=== PATIENT | female | born 1955 ===

== ENCOUNTER 2018-07-03 13:17 | Inpatient (IN) | payer OTHER ==
--- NOTE | 2018-07-03 13:40 | ED PDOC ---
Arrival/HPI - General Chief Complaint: Abdominal Pain Time Seen by Provider: 07/03/18 13:32 Historian: Patient - History of Present Illness Narrative History of Present Illness (Text): 07/03/18 13:42 62 y/o female, pmh including HLD, nkda, c/o upper abdominal pain with nausea/ vomiting started 10 pm last night after eating fried chicken and rice. Pt. stated that she has pain immediately after eating the fried chicken and rice that evening, associated with nausea and vomiting, no night sweat, no dizziness , no coughing, no lower abdominal pain, no rash, no change in vision, no alcohol or drug abuse, no other medical or psychological complaints. Past Medical History - Provider Review Nursing Documentation Reviewed: Yes - Reproductive Menopause: Yes - Pulmonary Hx Respiratory Disorders: No - Psychiatric Hx Substance Use: No - Surgical History Hx Appendectomy: Yes Hx Section: Yes - Anesthesia Hx Anesthesia: Yes Hx Anesthesia Reactions: No Family/Social History - Physician Review Nursing Documentation Reviewed: Yes Family/Social History: Unknown Family HX Smoking Status: Unknown If Ever Smoked Hx Alcohol Use: No Hx Substance Use: No Allergies/Home Meds Allergies/Adverse Reactions: Allergies No Known Allergies Allergy (Verified 07/03/18 13:28) Home Medications: Home Meds Medication Instructions Recorded Confirmed Simvastatin [Simvastatin] 10 mg PO DAILY 07/03/18 07/03/18 Review of Systems - Review of Systems Constitutional: absent: Fatigue, Fevers Eyes: absent: Vision Changes ENT: absent: Hearing Changes Respiratory: absent: SOB, Cough Cardiovascular: absent: Chest Pain Gastrointestinal: Abdominal Pain, Nausea, Vomiting. absent: Diarrhea Musculoskeletal: absent: Arthralgias, Back Pain Skin: absent: Rash, Pruritis Neurological: absent: Headache, Dizziness Hemo/Lymphatic: absent: Adenopathy, Easy Bleeding Psychiatric: absent: Anxiety, Depression, Suicidal Ideation Physical Exam Vital Signs Reviewed: Yes Vital Signs Temp Pulse Resp BP Pulse Ox 07/03/18 19:01 98 F 68 18 112/58 L 99 07/03/18 17:22 98.1 F 64 18 98/62 L 95 07/03/18 15:04 98.1 F 70 18 132/78 98 07/03/18 13:25 98.1 F 78 18 130/80 99 Temperature: Afebrile Blood Pressure: Normal Pulse: Regular Respiratory Rate: Normal Appearance: Positive for: Well-Appearing, Non-Toxic Pain Distress: Moderate Mental Status: Positive for: Alert and Oriented X 3 - Systems Exam Head: Present: Atraumatic, Normocephalic Pupils: Present: PERRL Extroacular Muscles: Present: EOMI Conjunctiva: Present: Normal Mouth: Present: Moist Mucous Membranes Neck: Present: Normal Range of Motion Respiratory/Chest: Present: Clear to Auscultation, Good Air Exchange. No: Respiratory Distress, Accessory Muscle Use Cardiovascular: Present: Regular Rate and Rhythm, Normal S1, S2. No: Murmurs Abdomen: Present: Tenderness (+epigastric tenderenss, +upper abdominal tenderness. ). No: Distention, Peritoneal Signs, Rebound, Guarding, Hernias Back: Present: Normal Inspection Upper Extremity: Present: Normal Inspection. No: Cyanosis, Edema Lower Extremity: Present: Normal Inspection. No: Edema Neurological: Present: GCS=15, CN II-XII Intact, Speech Normal Skin: Present: Warm, Dry, Normal Color. No: Rashes Psychiatric: Present: Alert, Oriented x 3, Normal Insight, Normal Concentration Medical Decision Making ED Course and Treatment: 07/03/18 13:47 Differential: [place] vs. Gastritis vs. Cholecystitis vs. Pancreatitis vs. Colitis vs. Constipation vs. Ureter colic vs. UTI -Labs/ua/cardiac enzyme -ekg -Gallbladder sonogram -CT abdomen and pelvis -IVF/pepcid/zofran -Observe and reassess 07/03/18 14:06 -Pt. request pain meds, morphine 4mg IV 07/03/18 16:22 -EKG: NSR @ 64 BPM, no ST elevation or depression, T wave inversion on lead V2 and V3. -Gallbladder sonogram Marked hepatic steatosis suggested though other etiologies are possible. No intrahepatic biliary dilatation. Examination otherwise remarkable only for partial imaging of the pancreas. -CT abdomen and pelvis show Although the pancreas is not edematous, peripancreatic reaction is suspicious for pancreatitis. Cholelithiasis identified in the gallbladder. No obvious biliary tree dilatation. Clinically correlate further. Marked hepatic steatosis. Tiny lucency right kidney too small to characterize. Potential mesenteric adenitis. -Labs show no acute findings except wbc 11.1, AST 1362/ALT 1441/Lactate Dehydrogenase 4255 (Alcohol/drug screen/PT/PTT/Tylenol/Salicylate level added) -Lipase show 5541 +acute pancreatitis -Cardiac enzyme is negative -Acetaminophen/salicylate levels within normal limit -Alcohol level within normal limit -Pt/Ptt within normal limit. -UA show no UTI -UDS -All labs and radiology result discussed with the patient and share decision is made, pt.'s pmd is from [facility] (Dr. Cheatham) and doesn't come to his hospital, pt. will need admission. Pt. request the admitting physician to be Dr. Villatoro ( she understands Dr. Alejandro is covering Dr. Villatoro and agreed with Dr. Alejandro). 07/03/18 16:49 -Dr. Villatoro paged. 07/03/18 17:07 -Dr. Alejandro called back, covering for Dr. Villatoro, discussed about the labs/ radiology result and agreed on the treatment/admission plan, request admit to her service to [facility] and order routine consult for Dr. Hu. -I discussed with the patient about this plan of care and the patient agreed. 07/03/18 17:35 -Pt. has transient hypotension 98/62, ICU paged and I spoke to Dr. Diaz (ICU oncall), discussed about the labs/radiology results and will come to evaluate the patient as she meets 3 criterias of mariela stoneia. 07/03/18 17:56 -ICU Dr. Diaz came to evaluate the case, will take the patient to the ICU, request blood cultures and IV meropenem, ordered. -I discussed with Dr. Pryor, and she agreed on the treatment and admission plan. 07/03/18 18:56 -Pt. 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 - Lab Interpretations Lab Results: 07/03/18 13:51 07/03/18 14:56 Lab Results 07/03/18 16:00: Alcohol, Quantitative < 10 07/03/18 16:00: PT 11.7, INR 1.03, APTT 27.3 07/03/18 14:56: Salicylates < 1 L, Acetaminophen < 10.0 L 07/03/18 14:56: Sodium 139, Potassium 4.1, Chloride 104, Carbon Dioxide 25, Anion Gap 14, BUN 13, Creatinine 0.7, Est GFR ( Amer) > 60, Est GFR (Non- Af Amer) > 60, Random Glucose 157 H, Calcium 9.4, Magnesium 2.2, Total Bilirubin 2.6 H, AST 1362 H, ALT 1441 H, Alkaline Phosphatase 169 H, Lactate Dehydrogenase 4255 H, Total Creatine Kinase 141, Troponin I < 0.01, Total Protein 8.5 H, Albumin 4.9 H, Globulin 3.7, Albumin/Globulin Ratio 1.3, Lipase 5541 H 07/03/18 13:51: WBC 11.1 H, RBC 5.31, Hgb 15.2, Hct 45.5, MCV 85.7, MCH 28.6, MCHC 33.4, RDW 13.2, Plt Count 260, MPV 10.3, Gran % 84.9 H, Lymph % (Auto) 11.0 L, [place] % (Auto) 3.9, Eos % (Auto) 0.0 L, Baso % (Auto) 0.2, Gran # 9.45 H , Lymph # (Auto) 1.2, [place] # (Auto) 0.4, Eos # (Auto) 0.0, Baso # (Auto) 0.02 07/03/18 13:07: Urine Color Yellow, Urine Appearance Clear, Urine pH 6.0, Ur Specific [place] 1.020, Urine Protein Trace H, Urine Glucose (UA) Negative, Urine Ketones Trace H, Urine Blood Small H, Urine Nitrate Negative, Urine Bilirubin Negative, Urine Urobilinogen 0.2, Ur Leukocyte Esterase Negative, Urine RBC 2 - 5, Urine WBC 1 - 3, Ur Epithelial Cells 3 - 4, Urine Bacteria Mod , Urine Other Utrans I have reviewed the lab results: Yes - RAD Interpretation Radiology Orders: 07/03/18 13:41 ABD & PELVIS IV CONTRAST ONLY [CT] Stat GALLBLADDER & PANCREAS [US] Stat Gall bladder sonogram: Date of service: 07/03/2018 HISTORY: upper abdominal pain x 1 day COMPARISON: None. TECHNIQUE: Sonographic evaluation of the right upper quadrant of the abdomen. FINDINGS: LIVER: Measures 13.5 cm in length. Markedly increased echogenicity of the liver parenchyma. No mass. No intrahepatic bile duct dilatation. GALLBLADDER: Unremarkable. No gallstones. COMMON BILE DUCT: Measures 5.3 mm. No stones. No dilatation. PANCREAS: Overlying bowel gas sisters a tail the pancreas with remainder unremarkable appearing. RIGHT KIDNEY: Measures 9.6 cm in length. Normal echogenicity. No calculus, mass, or hydronephrosis. AORTA: No aneurysmal dilatation. IVC: Unremarkable. OTHER FINDINGS: None . IMPRESSION: Marked hepatic steatosis suggested though other etiologies are possible. No intrahepatic biliary dilatation. Examination otherwise remarkable only for partial imaging of the pancreas. -------- CT abdomen and pelvis: 07/03/2018 PROCEDURE: CT Abdomen and Pelvis with contrast HISTORY: upper abdominal pain x 1 day, nausea/vomiting COMPARISON: None. TECHNIQUE: Following oral and intravenous contrast administration, a CT examination of the abdomen and pelvis performed from the domes of the diaphragms to the symphysis pubis with reformatted datasets provided not only axial but also sagittal and coronal series. Contrast dose: Omnipaque 350, 100 cc Radiation dose: Total exam DLP = 645.79 mGy-cm. This CT exam was performed using one or more of the following dose reduction techniques: Automated exposure control, adjustment of the mA and/or kV according to patient size, and/or use of iterative reconstruction technique. FINDINGS: LOWER THORAX: Unremarkable. LIVER: Markedly diminished attenuation throughout the liver is identified representing hepatic steatosis. No mass or intrahepatic biliary dilatation appreciated. GALLBLADDER AND BILE DUCTS: Gallbladder is contracted with cholelithiasis identified in the lumen. PANCREAS: Pancreas appears grossly nonfocal however peripancreatic reaction is appreciated suspicious for pancreatitis extending into the left para renal space. Trace reactive changes seen superficial to the cells muscles bilaterally , potentially from the same etiology. No pancreatic duct dilatation. No obvious choledocholithiasis or significant dilatation of the common bile duct. SPLEEN: Unremarkable. ADRENALS: Unremarkable. No mass. KIDNEYS AND URETERS: No obstructive uropathy or renal mass appreciable although a tiny lucency is seen at the right kidney too small to characterize. VASCULATURE: Unremarkable. No aortic aneurysm. BOWEL: Unremarkable. No obstruction. No gross mural thickening. APPENDIX: Appendix not identified. No CT evidence of appendicitis. PERITONEUM: Central mesenteric reactive changes are appreciated with a few tiny shotty lymph nodes. Mesenteric adenitis is not completely excluded. No pericecal lymphadenopathy identified. LYMPH NODES: Unremarkable. No enlarged lymph nodes. BLADDER: Unremarkable. REPRODUCTIVE: Unremarkable. BONES: No acute fracture. OTHER FINDINGS: None. IMPRESSION: 1. Although the pancreas is not edematous, peripancreatic reaction is suspicious for pancreatitis. Cholelithiasis identified in the gallbladder. No obvious biliary tree dilatation. Clinically correlate further. 2. Marked hepatic steatosis. 3. Tiny lucency right kidney too small to characterize. 4. Potential mesenteric adenitis. Vending Stand Supervisor: Radiologist - EKG Interpretation EKG Interpretation (Text): 07/03/18 13:49 -EKG: NSR @ 64 BPM, no ST elevation or depression, T wave inversion on lead V2 and V3. Interpreted by ED Physician: Yes Type: 12 lead EKG Comparison: No previous EKG avail. - Medication Orders Current Medication Orders: Sodium Chloride (Sodium Chloride 0.9%) 1,000 mls @ 100 mls/hr IV .Q10H [facility] Last Admin: 07/04/18 21:16 Dose: 100 mls/hr eMAR Start Stop Document 07/04/18 21:16 GLORIA (Rec: 07/04/18 21:17 [facility]ORIA [id number] Intravenous Solution Start Date 07/04/18 Start Time 21:16 End Date 07/05/18 End time 07:00 Total Infusion Time 584 Piperacillin Sod/Tazobactam Sod (Zosyn 3.375 In Ns 100ml) 100 mls @ 200 mls/hr IVPB Q6 SHANICE PRN Reason: Protocol Stop: 07/11/18 12:01 Last Admin: 07/04/18 23:11 Dose: 200 mls/hr eMAR Start Stop Document 07/04/18 23:11 GLORIA (Rec: 07/04/18 23:12 GLORIA [id number] Intravenous Solution Start Date 07/04/18 Start Time 23:12 End Date 07/05/18 End time 00:10 Total Infusion Time 58 Morphine Sulfate (Morphine) 4 mg IVP Q4H PRN PRN Reason: Pain, severe (8-10) Last Admin: 07/04/18 22:15 Dose: 4 mg MAR Pain Assessment Document 07/04/18 22:15 GLORIA (Rec: 07/04/18 22:18 GLORIA [id number] Pain Reassessment Is this a pain reassessment? Yes Sleep Is patient sleeping during reassessment? No Presence of Pain Presence of Pain Yes Pain Scale Used Pain Scale Used Numeric Location Pain Location Body Site Abdomen Description Pain Behavior Irritability Withdrawal from Touch Alleviating Factors Medication IVP Administration Document 07/04/18 22:15 GLORIA (Rec: 07/04/18 22:18 GLORIA [id number] Charges for Administration # of IVP Administrations 1 Discontinued Medications Famotidine (Pepcid) 20 mg IVP STAT STA Stop: 07/03/18 13:42 Last Admin: 07/03/18 14:06 Dose: 20 mg IVP Administration Document 07/03/18 14:06 VIVIANA (Rec: 07/03/18 14:06 VIVIANA [id number]) Charges for Administration # of IVP Administrations 1 Sodium Chloride (Sodium Chloride 0.9%) 1,000 mls @ 250 mls/hr IV .Q4H SHANICE Last Admin: 07/03/18 17:22 Dose: 250 mls/hr Sodium Chloride (Sodium Chloride 0.9%) 1,000 mls @ 100 mls/hr IV .Q10H SHANICE Sodium Chloride (Sodium Chloride 0.9%) 1,000 mls @ 1,000 mls/hr IV .Q1H SHANICE Last Admin: 07/03/18 19:04 Dose: Meropenem (Merrem Iv 1 Gm Premix) 50 mls @ 100 mls/hr IVPB STAT SHANICE PRN Reason: Protocol Last Admin: 07/03/18 18:14 Dose: 100 mls/hr eMAR Start Stop Document 07/03/18 18:14 VIVIANA (Rec: 07/03/18 18:14 VIVIANA [id number]) Intravenous Solution Start Date 07/03/18 Start Time 18:14 End Date 07/03/18 End time 18:44 Total Infusion Time 30 Dextrose/Sodium Chloride (Dextrose 5%/0.9% Ns 1000 Ml) 1,000 mls @ 75 mls/hr IV .[id number] SHANICE Last Admin: 07/03/18 19:08 Dose: 75 mls/hr eMAR Start Stop Document 07/03/18 19:08 LA (Rec: 07/03/18 19:09 LA [id number]) Intravenous Solution Start Date 07/03/18 Start Time 19:08 Calcium Gluconate 1,000 mg/ (Sodium Chloride) 110 mls @ 110 mls/hr IVPB ONCE ONE Stop: 07/04/18 10:22 Last Admin: 07/04/18 10:18 Dose: 110 mls/hr eMAR Start Stop Document 07/04/18 10:18 MMA (Rec: 07/04/18 10:18 MMA [id number] Intravenous Solution Start Date 07/04/18 Start Time 10:18 End Date 07/04/18 Potassium Chloride (Potassium Chloride 10 Meq/100 Ml) 10 meq in 100 mls @ 50 mls/hr IVPB ONCE ONE Stop: 07/04/18 11:22 Last Admin: 07/04/18 10:18 Dose: 50 mls/hr eMAR Start Stop Document 07/04/18 10:18 MMA (Rec: 07/04/18 10:18 MMA [id number] Intravenous Solution Start Date 07/04/18 Start Time 10:18 End Date 07/04/18 End time 12:18 Total Infusion Time 120 Morphine Sulfate (Morphine) 4 mg IVP STAT STA Stop: 07/03/18 14:07 Last Admin: 07/03/18 14:10 Dose: 4 mg MAR Pain Assessment Document 07/03/18 14:10 LA (Rec: 07/03/18 14:10 LA [id number]) Pain Reassessment Is this a pain reassessment? No Sleep Is patient sleeping during reassessment? No Presence of Pain Presence of Pain Yes Pain Scale Used Pain Scale Used Numeric Location Pain Location Body Site Abdomen Description Description Constant Intensity of Pain at present 7 IVP Administration Document 07/03/18 14:10 LA (Rec: 07/03/18 14:10 LA [id number]) Charges for Administration # of IVP Administrations 1 Re-Assess: MARY ELLEN Pain Assessment Document 07/03/18 15:10 LA (Rec: 07/03/18 17:15 LA [id number]) Pain Reassessment Is this a pain reassessment? Yes Sleep Is patient sleeping during reassessment? No Presence of Pain Presence of Pain Yes Pain Scale Used Pain Scale Used Numeric Location Pain Location Body Site Abdomen Description Intensity of Pain at present 3 Ondansetron HCl (Zofran Inj) 4 mg IVP STAT STA Stop: 07/03/18 13:42 Last Admin: 07/03/18 14:06 Dose: 4 mg IVP Administration Document 07/03/18 14:06 VIVIANA (Rec: 07/03/18 14:06 VIVIANA [id number]) Charges for Administration # of IVP Administrations 1 Potassium Chloride (K-Dur 20 Meq Er Tab) 40 meq PO ONCE ONE Stop: 07/04/18 08:21 Last Admin: 07/04/18 08:52 Dose: 40 meq - PA / PUBLIC INFORMATION COORDINATOR / Resident Statement / has reviewed & agrees with the documentation as recorded. Disposition/Present on Arrival - Present on Arrival Any Indicators Present on Arrival: No History of DVT/PE: No History of Uncontrolled Diabetes: No Urinary Catheter: No History of Decub. Ulcer: No History Surgical Site Infection Following: None - Disposition Have Diagnosis and Disposition been Completed?: Yes Diagnosis: Hepatic steatosis, Transaminitis, Pancreatitis, Hypotension Disposition: HOSPITALIZED Disposition Time: 18:01 Patient Plan: Admission, ICU Patient Problems: Current Active Problems Problem Status Onset Hepatic steatosis Acute Hypotension Acute Pancreatitis Acute Transaminitis Acute Condition: STABLE
[2018-07-03] MEDS: Sodium Chloride 0.9% 1,000 ML IV SCH ×4 (14:04→19:04)
[2018-07-03] MEDS ORDERED: Morphine 4 mg/ml ISec IVP STA (14:06)
[2018-07-03 14:16] LABS: BASO # 0.02 K/mm3 (0.0-2.0); BASO % 0.2 % (0.0-3.0); GRAN # 9.45 (1.4-6.5); GRAN % 84.9 % (50.0-68.0); HEMOGLOBIN 15.2 g/dL (12.0-16.0); LYMPH # 1.2 (1.2-3.4); MEAN CELL VOLUME 85.7 fl (80.0-105.0); MEAN CORPUSCULAR HEMOGLOBIN 28.6 pg (25.0-35.0); MEAN CORPUSCULAR HGB CONC 33.4 g/dl (31.0-37.0); MEAN PLATELET VOLUME 10.3 fl (7.0-11.0); MONO # 0.4 (0.1-0.6); MONO % 3.9 % (1.0-6.0); RBC 5.31 10^6/uL (3.5-6.1); RED CELL DISTRIBUTION WIDTH 13.2 % (11.5-14.5); WHITE BLOOD COUNT 11.1 10^3/ul (4.5-11.0)
[2018-07-03] MEDS ORDERED: Iohexol 300 100 ML IJ ONE (14:59)
--- NOTE | 2018-07-03 15:02 | US ---
Date of service: 07/03/2018 HISTORY: upper abdominal pain x 1 day COMPARISON: None. TECHNIQUE: Sonographic evaluation of the right upper quadrant of the abdomen. FINDINGS: LIVER: Measures 13.5 cm in length. Markedly increased echogenicity of the liver parenchyma. No mass. No intrahepatic bile duct dilatation. GALLBLADDER: Unremarkable. No gallstones. COMMON BILE DUCT: Measures 5.3 mm. No stones. No dilatation. PANCREAS: Overlying bowel gas sisters a tail the pancreas with remainder unremarkable appearing. RIGHT KIDNEY: Measures 9.6 cm in length. Normal echogenicity. No calculus, mass, or hydronephrosis. AORTA: No aneurysmal dilatation. IVC: Unremarkable. OTHER FINDINGS: None . IMPRESSION: Marked hepatic steatosis suggested though other etiologies are possible. No intrahepatic biliary dilatation. Examination otherwise remarkable only for partial imaging of the pancreas.
[2018-07-03 15:18] LABS: CALCIUM 9.4 mg/dL (8.4-10.5); GFR NON-AFRICAN AMERICAN > 60
[2018-07-03 15:35] LABS: BLOOD UREA NITROGEN 13 mg/dL (7-21)
[2018-07-03 15:36] LABS: ALB/GLOB RATIO 1.3 (1.1-1.8); ALBUMIN 4.9 g/dL (3.0-4.8); ALT/SGPT 1441 U/L (7-56); AST/SGOT 1362 U/L (14-36)
[2018-07-03 15:37] LABS: TROPONIN I < 0.01 ng/mL
[2018-07-03 15:50] LABS: URINE BILIRUBIN NEGATIVE (NEGATIVE); URINE BLOOD SMALL (NEGATIVE); URINE GLUCOSE (UA) NEGATIVE (NEGATIVE); URINE LEUKOCYTE ESTERASE NEGATIVE Leu/uL (NEGATIVE); URINE PROTEIN TRACE mg/dL (<30 mg/dL); URINE UROBILINOGEN 0.2 E.U./dL (<1 E.U./dL)
[2018-07-03 15:56] LABS: URINE APPEARANCE CLEAR (CLEAR); URINE COLOR YELLOW (YELLOW)
[2018-07-03 15:59] LABS: LIPASE 5541 U/L (23-300)
[2018-07-03 16:36] LABS: URINE BACTERIA MOD (NEG)
--- NOTE | 2018-07-03 16:36 | CT ---
Date of service: 07/03/2018 PROCEDURE: CT Abdomen and Pelvis with contrast HISTORY: upper abdominal pain x 1 day, nausea/vomiting COMPARISON: None. TECHNIQUE: Following oral and intravenous contrast administration, a CT examination of the abdomen and pelvis performed from the domes of the diaphragms to the symphysis pubis with reformatted datasets provided not only axial but also sagittal and coronal series. Contrast dose: Omnipaque 350, 100 cc Radiation dose: Total exam DLP = 645.79 mGy-cm. This CT exam was performed using one or more of the following dose reduction techniques: Automated exposure control, adjustment of the mA and/or kV according to patient size, and/or use of iterative reconstruction technique. FINDINGS: LOWER THORAX: Unremarkable. LIVER: Markedly diminished attenuation throughout the liver is identified representing hepatic steatosis. No mass or intrahepatic biliary dilatation appreciated. GALLBLADDER AND BILE DUCTS: Gallbladder is contracted with cholelithiasis identified in the lumen. PANCREAS: Pancreas appears grossly nonfocal however peripancreatic reaction is appreciated suspicious for pancreatitis extending into the left para renal space. Trace reactive changes seen superficial to the cells muscles bilaterally, potentially from the same etiology. No pancreatic duct dilatation. No obvious choledocholithiasis or significant dilatation of the common bile duct. SPLEEN: Unremarkable. ADRENALS: Unremarkable. No mass. KIDNEYS AND URETERS: No obstructive uropathy or renal mass appreciable although a tiny lucency is seen at the right kidney too small to characterize. VASCULATURE: Unremarkable. No aortic aneurysm. BOWEL: Unremarkable. No obstruction. No gross mural thickening. APPENDIX: Appendix not identified. No CT evidence of appendicitis. PERITONEUM: Central mesenteric reactive changes are appreciated with a few tiny shotty lymph nodes. Mesenteric adenitis is not completely excluded. No pericecal lymphadenopathy identified. LYMPH NODES: Unremarkable. No enlarged lymph nodes. BLADDER: Unremarkable. REPRODUCTIVE: Unremarkable. BONES: No acute fracture. OTHER FINDINGS: None. IMPRESSION: 1. Although the pancreas is not edematous, peripancreatic reaction is suspicious for pancreatitis. Cholelithiasis identified in the gallbladder. No obvious biliary tree dilatation. Clinically correlate further. 2. Marked hepatic steatosis. 3. Tiny lucency right kidney too small to characterize. 4. Potential mesenteric adenitis.
[2018-07-03 16:38] LABS: ACETAMINOPHEN < 10.0 ug/ml (10.0-20.0); SALICYLATE < 1 mg/dL (2.0-20.0)
[2018-07-03] MEDS ORDERED: Sodium Chloride 0.9% 1,000 ML IV SCH ×2 (17:15→20:36)
[2018-07-03 17:20] LABS: INR 1.03; PARTIAL THROMBOPLASTIN TIME 27.3 Seconds (25.1-36.5); PROTHROMBIN TIME 11.7 SECONDS (9.4-12.5)
[2018-07-03] MEDS ORDERED: Meropenem IV 1 gm in NS 50 ML IVPB SCH (18:00)
[2018-07-03] MEDS ORDERED: Dextrose 5%/0.9% NS 1,000 ML IV SCH (19:00)
[2018-07-03 19:54] VITALS: BMI 29.2
[2018-07-03 20:28] LABS: AMYLASE 489 U/L (35-125)
[2018-07-03] MEDS: Morphine 4 mg/ml ISec IVP PRN (20:33)
[2018-07-03 20:40] LABS: TROPONIN I < 0.01 ng/mL
--- NOTE | 2018-07-04 04:22 | CON ---
DATE: 07/03/2018 [facility] CONSULTATION REQUESTING PHYSICIAN: Dr. Walker CHIEF COMPLAINT: The patient presented with severe abdominal pain and nauseousness and vomiting. HISTORY OF PRESENT ILLNESS: Ms. Dodge is a 62-year-old female with a history of hyperlipidemia, on medications for that problem. The patient stated that approximately 10 o'clock last night after a meal, chicken and rice, she developed abdominal pain that lasts most of the night and during today, it got extremely bad and with multiple episodes of vomiting about proximately 8, she came to the emergency room. The patient's laboratories revealed that she has acute pancreatitis and at this time with pain meds, she feels much better. The patient is on IV fluids and hemodynamically she is stable. Her BP systolic is approximately 100 and she states that, that is her usual systolic. No diarrhea, no cough and congestion. No shortness of breath. No wheezing. No dizziness or chest congestion. PAST MEDICAL HISTORY: Significant for x3 and hyperlipidemia. ALLERGIES: SHE HAS NO KNOWN ALLERGIES. CURRENT MEDICATIONS: Can be evaluated as per the nurse's intake form. Note that the current medication is simvastatin. SOCIAL HISTORY: She has no history of smoking, EtOH abuse or drug abuse. FAMILY HISTORY: Noncontributory. REVIEW OF SYSTEMS: CONSTITUTIONAL: All negative. HEENT: All negative. RESPIRATORY: All negative. CARDIOVASCULAR: All negative. GASTROINTESTINAL: She had the abdominal pain, nauseousness and vomiting. MUSCULOSKELETAL: All negative. : All negative. HEMATOLOGIC: All negative. IMMUNOLOGIC: All negative. INTEGRITY: All negative. NEUROPSYCHIATRIC: All negative. PHYSICAL EXAMINATION: VITAL SIGNS: Note that her temperature is 98.1, her pulse is 64, respirations are 18 and BP is 98/62, O2 saturation is 95% on room air. HEENT: Head is atraumatic, normocephalic. Eyes reactive to light. Ears, nose and throat seemed to be within normal limits. NECK: Supple. No JVD. No thyroid enlargement or lymph nodes. HEART: Has regular rate and rhythm. Normal S1, S2. LUNGS: Reveal good breath sounds bilaterally. ABDOMEN: Tender in the epigastric region and no distention, no peritoneal sounds, no rebound, no guarding. EXTREMITIES: Reveal no edema. NEUROLOGICALLY: She seemed to be grossly intact. LABORATORY DATA: As far as laboratories, her white count is 11.1, hemoglobin is 15.2, hematocrit 45.5 with platelets of 260,000. Her PT is 11.7, INR is 1.03 and PTT is 27.3. Chemistry revealed a sodium of 139, potassium 4.1, chloride 104, CO2 of 25 with a BUN of 13, creatinine of 0.7 and a glucose of 157. The patient's bilirubin is 2.6, AST is 1362, ALT is 1441, alkaline phosphatase is 169, LDH is 4255 and lipase is 5541. As far as her gallbladder ultrasound, there was marked hepatic steatosis suggested, though other etiologies are possible. No intrahepatic biliary dilatation, otherwise remarkable only for partial imaging of the pancreas. The patient's CT of the abdomen and pelvis reveals impression is although the pancreas is not edematous, peripancreatic reaction is suspicious for pancreatitis. Cholelithiasis identified in the gallbladder, no obvious biliary or dilatation clinically correlate further. It noted marked hepatic steatosis and potential mesenteric adenitis. IMPRESSION: As far as my impression, this patient has severe acute pancreatitis, also increased liver enzymes, hepatitis, has a history of hyperlipidemia and it is noted that she has cholelithiasis, hepatic steatosis and potential mesenteric adenitis. It is noted that the patient may have peripancreatic reaction. PLAN: As far as our plan, the patient is being admitted to the Intensive Care Unit for close observation. She is getting IV fluids of D5 normal saline. She had a complete septic workup, put on meropenem as an antibiotic and GI consult has been called with Dr. Hu. The patient also has had ID consult with Dr. Mackay. We will continue to treat aggressively and note that we will repeat the labs during the night and order amylase as well as triglycerides. Johnathon Diaz MD
[2018-07-04] MEDS: Sodium Chloride 0.9% 1,000 ML IV SCH ×3 (07:18→21:16)
[2018-07-04 07:32] LABS: BASO # 0.01 K/mm3 (0.0-2.0); BASO % 0.1 % (0.0-3.0); EOS % 0.2 % (1.5-5.0); GRAN # 9.6 (1.4-6.5); GRAN % 82.5 % (50.0-68.0); HEMOGLOBIN 12.4 g/dL (12.0-16.0); LYMPH # 1.1 (1.2-3.4); LYMPH % 9.6 % (22.0-35.0); MEAN CELL VOLUME 88.3 fl (80.0-105.0); MEAN CORPUSCULAR HEMOGLOBIN 27.9 pg (25.0-35.0); MEAN CORPUSCULAR HGB CONC 31.6 g/dl (31.0-37.0); MONO # 0.9 (0.1-0.6); MONO % 7.6 % (1.0-6.0); RBC 4.44 10^6/uL (3.5-6.1); RED CELL DISTRIBUTION WIDTH 13.6 % (11.5-14.5); WHITE BLOOD COUNT 11.6 10^3/ul (4.5-11.0)
[2018-07-04 07:45] LABS: ALB/GLOB RATIO 1.2 (1.1-1.8); ALBUMIN 3.3 g/dL (3.0-4.8); ALT/SGPT 838 U/L (7-56); AMYLASE 344 U/L (35-125); AST/SGOT 475 U/L (14-36); BLOOD UREA NITROGEN 10 mg/dL (7-21); CALCIUM 8.1 mg/dL (8.4-10.5); GFR NON-AFRICAN AMERICAN > 60
[2018-07-04 07:54] LABS: TROPONIN I < 0.01 ng/mL
[2018-07-04] MEDS ORDERED: Potassium Chloride 20 mEq ER Tab PO ONE (08:20)
--- NOTE | 2018-07-04 08:43 | HP ---
CHIEF COMPLAINT AND HISTORY OF PRESENT ILLNESS: This is a 62-year-old female, who is coming into the hospital complaining of abdominal pain. She says that the epigastric pain started about 2 days ago. 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 She was complaining of discomfort. She was having nausea. She was having vomiting. The patient says that it started about 10 o'clock on Wednesday night, which is about 2 days ago. She said that she was eating fried chicken and rice. She thought initially that it maybe related to the food that she ate, but she continued to get worse and was not able to tolerate the pain. She came in for further evaluation. The patient says that she received pain medications, IV fluids. Her pain is better controlled. She has no complaints of any chest pain. No nausea at this point. No abdominal pain except when she palpates her epigastric area. She has no rebound. No headaches or dizziness. No weakness in the arms or the legs. No diarrhea. She denies drinking alcohol. REVIEW OF SYMPTOMS: All other review of symptoms are within normal limits except that was mentioned. ALLERGIES: NO KNOWN DRUG ALLERGIES. HOME MEDICATIONS: Simvastatin. PAST MEDICAL HISTORY: Dyslipidemia. PAST SURGICAL HISTORY: Appendectomy, C-sections x3. SOCIAL HISTORY: She does not smoke, drink or use drugs. FAMILY HISTORY: Noncontributory. PHYSICAL EXAMINATION: VITAL SIGNS: She has a temperature of 98.1, pulse of 64, respirations 18, blood pressure is 98/62. Repeat blood pressure is 132/78. GENERAL: The patient lying in bed, uncomfortable, and in no acute distress. HEENT: Atraumatic and normocephalic. Anicteric sclerae. Moist mucosa. [place] conjunctivae. No oral lesions. NECK: No JVD, anterior and posterior adenopathy, thyromegaly, or bruits. CARDIOVASCULAR: S1 and S2 regular. No murmur, rubs, or gallop. LUNGS: Clear to auscultation bilaterally. No wheezes, rales, or rhonchi. ABDOMEN: Bowel sounds are positive. Soft. There is epigastric tenderness with deep palpation. No rebound or guarding. EXTREMITIES: No cyanosis, clubbing, or edema. NEUROLOGIC: No facial asymmetry. Tongue is midline. No uvula deviation. Power is 5/5 upper extremity and lower extremity. Sensation intact in upper extremity and lower extremity. PSYCHIATRIC: She is awake, alert and oriented x3. No anxiety or depression. She has normal affect. GENITOURINARY: No CVA tenderness. VASCULAR: 2+ pulses in the carotid pulses and pedal pulses. SKIN: No erythema or nodules. SPINE: Shows normal curvature. LABORATORY DATA: Labs have been reviewed. White count of 11.1, hemoglobin is 15.2, platelet count is 260. INR is 1.03. Chemistry shows a sodium of 139, potassium is 4.1. The patient's AST is 1362, ALT is 1441. Repeat AST is 475, ALT is 838, LDH is 4255, amylase is 489, lipase is 5541, potassium is 3.3. Urine shows blood is small, nitrites are negative, bilirubin is negative. Toxicology shows salicylates are less than 1, acetaminophen less than 10, alcohol is less than 10. The gallbladder and pancreas ultrasound shows hepatic steatosis. There is no intrahepatic biliary dilatation. CT of the abdomen and pelvis done shows the pancreas is not edematous. There is peripancreatic reaction suspicious for pancreatitis. Cholelithiasis is identified in the gallbladder. ASSESSMENT: 1. Acute pancreatitis. 2. Transaminitis. 3. Cholelithiasis. 4. Hypokalemia. PLAN: The patient is currently comfortable. She did use morphine yesterday for pain. The patient is currently on IV fluids. She has been placed on IV antibiotics. The patient was given Pepcid. She was given Zofran. I will advance her diet to a liquid diet. The patient is going to have hepatitis screen done. I will replace the potassium. She is going to be seen by GI with Dr. Hu. We will continue to follow closely. Dre Walker MD
--- NOTE | 2018-07-04 09:54 | CP.PCM.CON ---
<ChongilbertManinder - Last Filed: 07/04/18 10:44> History of Present Illness - History of Present Illness History of Present Illness: GI fellow PGY4, Consult note. Clara Dodge is a very pleasant 62yrs young female with history of HLD presenting with acute abdominal pain. Pain was severe, located in the epigastrium, precipitated by fried chicken, relieved by nothing. She denies previous pain like this, history of gallbladder, liver or pancreatic problems. She denies etoh use. She has been on simvastatin for 3 years. Denies any new medications. W/U in ED revealed elevated lipase, LFTs, evidence of gallstones and pancreatitis on CT scan. U/S shows CBD 5mm. Diffuse fatty liver was seen on imaging. Today, patient looks good. Abdominal pain has improved. She is somewhat hungry. Denies n/v/d/f. PMHx - see above. PSHx - FamHx - denies history of GI related cancer. History of liver disease. SocHx- Denies smoking, etoh use. 12pt ROS neg except for above. Past Patient History - Past Social History Smoking Status: Never Smoked - CARDIAC Hx Hypercholesterolemia: Yes - PULMONARY Hx Respiratory Disorders: No - MUSCULOSKELETAL/RHEUMATOLOGICAL Hx Falls: No - PSYCHIATRIC Hx Substance Use: No - SURGICAL HISTORY Hx Surgeries: Yes () Hx Appendectomy: Yes - ANESTHESIA Hx Anesthesia: Yes Hx Anesthesia Reactions: No Meds Allergies/Adverse Reactions: Allergies Allergy/AdvReac Type Severity Reaction Status Date / Time No Known Allergies Allergy Verified 07/03/18 13:28 - Medications Medications: Current Medications Sodium Chloride (Sodium Chloride 0.9%) 1,000 mls @ 100 mls/hr IV .Q10H [facility] Last Admin: 07/04/18 09:09 Dose: 100 mls/hr Piperacillin Sod/Tazobactam Sod (Zosyn 3.375 In Ns 100ml) 100 mls @ 200 mls/hr IVPB Q6 SHANICE PRN Reason: Protocol Stop: 07/11/18 12:01 Calcium Gluconate 1,000 mg/ (Sodium Chloride) 110 mls @ 110 mls/hr IVPB ONCE ONE Stop: 07/04/18 10:22 Potassium Chloride (Potassium Chloride 10 Meq/100 Ml) 10 meq in 100 mls @ 50 mls/hr IVPB ONCE ONE Stop: 07/04/18 11:22 Morphine Sulfate (Morphine) 4 mg IVP Q4H PRN PRN Reason: Pain, severe (8-10) Last Admin: 07/03/18 20:33 Dose: 4 mg Physical Exam - Constitutional Appears: Non-toxic, No Acute Distress - Head Exam Head Exam: NORMAL INSPECTION - Eye Exam Eye Exam: Normal appearance - ENT Exam ENT Exam: Mucous Membranes Moist - Respiratory Exam Respiratory Exam: Clear to Auscultation Bilateral, NORMAL BREATHING PATTERN - Cardiovascular Exam Cardiovascular Exam: REGULAR RHYTHM, +S1, +S2 - GI/Abdominal Exam GI & Abdominal Exam: Hypoactive Bowel Sounds, Soft, Tenderness. absent: Distended, Organomegaly Additional comments: Minimal tenderness with deep palpation - Extremities Exam Extremities exam: Positive for: normal inspection - Neurological Exam Neurological exam: Alert, Oriented x3 - Psychiatric Exam Psychiatric exam: Normal Affect, Normal Mood - Skin Skin Exam: Dry, Normal Color Results - Vital Signs Recent Vital Signs: Last Vital Signs Temp 98.1 F 07/04/18 04:00 Pulse 80 07/04/18 08:00 Resp 80 H 07/04/18 07:04 BP 108/56 L 07/04/18 08:00 Pulse Ox 92 L 07/04/18 08:00 - Labs Result Diagrams: 07/04/18 07:15 07/04/18 07:15 Labs: Laboratory Results - last 24 hr 07/03/18 07/04/18 07/04/18 20:13 07:15 07:15 WBC 11.6 H RBC 4.44 Hgb 12.4 D Hct 39.2 MCV 88.3 MCH 27.9 MCHC 31.6 RDW 13.6 Plt Count 203 MPV 10.0 Gran % 82.5 H Lymph % (Auto) 9.6 L [place] % (Auto) 7.6 H Eos % (Auto) 0.2 L Baso % (Auto) 0.1 Gran # 9.60 H Lymph # (Auto) 1.1 L [place] # (Auto) 0.9 H Eos # (Auto) 0.0 Baso # (Auto) 0.01 Sodium 140 Potassium 3.3 L Chloride 111 H Carbon Dioxide 23 Anion Gap 9 L BUN 10 Creatinine 0.7 Est GFR ( Amer) > 60 Est GFR (Non-Af Amer) > 60 Random Glucose 111 H Calcium 8.1 L Phosphorus 3.0 Magnesium 2.1 Total Bilirubin 0.8 AST 475 H D ALT 838 H Alkaline Phosphatase 125 Troponin I < 0.01 < 0.01 Total Protein 6.0 Albumin 3.3 Globulin 2.7 Albumin/Globulin Ratio 1.2 Triglycerides 42 Amylase 489 H 344 H Assessment & Plan - Assessment and Plan (Free Text) Assessment: 62F with minimal medical history presenting with acute abdominal pain consistent with pancreatitis and gallstones found on imaging. #Gallstone pancreatitis #Elevated liver enzymes #Hepatosteatosis #HLD PLAN: -CT and US review and agree with cholelithiasis, pancreatitis, hepatosteatosis -Patient is clinically improving. -She was started on CLD by primary at time of my exam. Requested she go slow, and stop if worsening abdominal pain, nausea, vomiting. -Slowly advance to low fat, protein diet. -Continue fluids per ICU/primary, monitor for fluid overload -Continue to trend ast,alt,hct,bun -Hold statin, other hepatotoxic meds. -MRCP tomorrow. - Date & Time Date: 07/04/18 Time: 10:36 <Joe Hu V - Last Filed: 07/04/18 23:25> Meds - Medications Medications: Current Medications Sodium Chloride (Sodium Chloride 0.9%) 1,000 mls @ 100 mls/hr IV .Q10H SHANICE Last Admin: 07/04/18 21:16 Dose: 100 mls/hr Piperacillin Sod/Tazobactam Sod (Zosyn 3.375 In Ns 100ml) 100 mls @ 200 mls/hr IVPB Q6 SHANICE PRN Reason: Protocol Stop: 07/11/18 12:01 Last Admin: 07/04/18 23:11 Dose: 200 mls/hr Morphine Sulfate (Morphine) 4 mg IVP Q4H PRN PRN Reason: Pain, severe (8-10) Last Admin: 07/04/18 22:15 Dose: 4 mg Results - Vital Signs Recent Vital Signs: Last Vital Signs Temp 98.5 F 07/04/18 20:00 Pulse 85 07/04/18 17:00 Resp 21 07/04/18 17:00 BP 123/37 L 07/04/18 17:00 Pulse Ox 91 L 07/04/18 17:00 - Labs Result Diagrams: 07/04/18 07:15 07/04/18 07:15 Labs: Laboratory Results - last 24 hr 07/04/18 07/04/18 07/04/18 07:15 07:15 08:30 WBC 11.6 H RBC 4.44 Hgb 12.4 D Hct 39.2 MCV 88.3 MCH 27.9 MCHC 31.6 RDW 13.6 Plt Count 203 MPV 10.0 Gran % 82.5 H Lymph % (Auto) 9.6 L [place] % (Auto) 7.6 H Eos % (Auto) 0.2 L Baso % (Auto) 0.1 Gran # 9.60 H Lymph # (Auto) 1.1 L [place] # (Auto) 0.9 H Eos # (Auto) 0.0 Baso # (Auto) 0.01 Sodium 140 Potassium 3.3 L Chloride 111 H Carbon Dioxide 23 Anion Gap 9 L BUN 10 Creatinine 0.7 Est GFR ( Amer) > 60 Est GFR (Non-Af Amer) > 60 Random Glucose 111 H Calcium 8.1 L Phosphorus 3.0 Magnesium 2.1 Total Bilirubin 0.8 AST 475 H D ALT 838 H Alkaline Phosphatase 125 Troponin I < 0.01 Total Protein 6.0 Albumin 3.3 Globulin 2.7 Albumin/Globulin Ratio 1.2 Amylase 344 H Hepatitis A IgM Ab Negative Hep Bs Antigen Negative Hep B Core IgM Ab Negative Hepatitis C Antibody Negative Attending/Attestation - Attestation I have personally seen and examined this patient.: Yes I have fully participated in the care of the patient.: Yes I have reviewed all pertinent clinical information: Yes Notes (Text): This is an addendum to GI consult report dictated by the GI Fellow The patient was seen and evaluated earlier. Medical records, lab studies, imagings were reviewed. Last 24 hours events reviewed. Agreed with the above treatment plan as outlined in [employer] 's notes with the addition of the following Gallstone pancreatitis On examination patient does, mild tenderness in the epigastric area and right upper quadrant Significant improvement of LFT ?passed stone Would request for MR EUBANKS in the a.m. 07/04/18 23:24
--- NOTE | 2018-07-04 10:15 | CARD ---
APPROVED REPORT Date of service: 07/04/2018 EKG Measurement Heart [id number] <Conclusion> Normal sinus rhythm T wave abnormality, consider anterolateral ischemia Abnormal ECG
--- NOTE | 2018-07-04 12:19 | CP.PCM.CON ---
History of Present Illness - History of Present Illness History of Present Illness: 62 year old female with PMH of dyslipidemia, S/P appendectomy, S/P came in to [facility] complaining of sudden onset abdominal pain apparently after eating fried chicken the 2 nights before today. It was associated with nausea and an episode of vomiting, denies diarrhea, no fever or chills, no chest pain, no SOB, no cough or colds, no headache or dizziness, no sore throat. She states the pain is in the middle of the abdomen but does not radiate anywhere. She denies recent travel outside of [place] in the past 3 months, no animal contacts. The patient denies alcohol use. CT A/P is showing acute pancreatitis. Infectious Diseases consult is requested to further evaluate and manage. Review of Systems - Review of Systems All systems: reviewed and no additional remarkable complaints except (as per HPI ) Past Patient History - Past Social History Smoking Status: Never Smoked - CARDIAC Hx Hypercholesterolemia: Yes - PULMONARY Hx Respiratory Disorders: No - MUSCULOSKELETAL/RHEUMATOLOGICAL Hx Falls: No - PSYCHIATRIC Hx Substance Use: No - SURGICAL HISTORY Hx Surgeries: Yes () Hx Appendectomy: Yes - ANESTHESIA Hx Anesthesia: Yes Hx Anesthesia Reactions: No Meds Allergies/Adverse Reactions: Allergies Allergy/AdvReac Type Severity Reaction Status Date / Time No Known Allergies Allergy Verified 07/03/18 13:28 - Medications Medications: Current Medications Meropenem (Merrem Iv 1 Gm Premix) 50 mls @ 100 mls/hr IVPB STAT SHANICE PRN Reason: Protocol Last Admin: 07/03/18 18:14 Dose: 100 mls/hr Sodium Chloride (Sodium Chloride 0.9%) 1,000 mls @ 100 mls/hr IV .Q10H SHANICE Morphine Sulfate (Morphine) 4 mg IVP Q4H PRN PRN Reason: Pain, severe (8-10) Last Admin: 07/03/18 20:33 Dose: 4 mg Physical Exam - Constitutional Appears: Chronically Ill - Head Exam Head Exam: NORMAL INSPECTION - ENT Exam ENT Exam: Mucous Membranes Moist - Neck Exam Neck exam: Negative for: Meningismus - Respiratory Exam Respiratory Exam: Decreased Breath Sounds - Cardiovascular Exam Cardiovascular Exam: +S1, +S2 - GI/Abdominal Exam GI & Abdominal Exam: Soft. absent: Tenderness Results - Vital Signs Recent Vital Signs: Last Vital Signs Temp 98.1 F 07/04/18 04:00 Pulse 72 07/04/18 06:20 Resp 17 07/04/18 06:20 BP 118/47 L 07/04/18 06:00 Pulse Ox 91 L 07/04/18 06:20 - Labs Result Diagrams: 07/04/18 07:15 07/04/18 07:15 Labs: Laboratory Results - last 24 hr 07/03/18 20:13 Troponin I < 0.01 Triglycerides 42 Amylase 489 H Assessment & Plan - Assessment and Plan (Free Text) Plan: Assessment Systemic Inflammatory response syndrome due to acute pancreatitis, R/O choledocholelithiasis, R/O gallstone pancreatitis dyslipidemia S/P appendectomy S/P Plan Started Zosyn pending blood cx patient with elevated Alk Phos and bilirubin - patient fort MRCP will monitor clinically
[2018-07-04] MEDS: Piperacillin/Tazobact 3.375 gm 100 ML IVPB SCH ×3 (12:26→23:11)
--- NOTE | 2018-07-04 13:34 | CP.CCUPN ---
Addendum entered and electronically signed by Bart Frazier DO 07/04/18 13:58 : Subjective: Seen and examined at bedside; no acute events overnight Tolerating diet well; no worsening complaints of abd pain No N/V w/ diet. Remainder of 12 system ROS is negative at this time. Original Note: <Bart Frazier - Last Filed: 07/04/18 13:11> CCU Objective - Vital Signs / Intake & Output Vital Signs (Last 4 hours): Vital Signs Pulse 07/04/18 12:40 93 H Intake and Output (Last 8hrs): Intake & Output 07/03/18 07/04/18 07/04/18 22:59 06:59 14:59 Intake Total 1100 Balance 1100 Weight 68.039 kg 72.575 kg Intake: IV 1100 0.9 1100 Other: # Voids Urine, Voided 2 - Physical Exam Head: Positive for: Atraumatic, Normocephalic Pupils: Positive for: PERRL Extroacular Muscles: Positive for: EOMI Conjunctiva: Positive for: Normal Mouth: Positive for: Moist Mucous Membranes Neck: Positive for: Normal Range of Motion Respiratory/Chest: Positive for: Clear to Auscultation, Good Air Exchange. Negative for: Respiratory Distress, Accessory Muscle Use Cardiovascular: Positive for: Regular Rate and Rhythm, Normal S1, S2. Negative for: Murmurs Abdomen: Positive for: Tenderness (+epigastric tenderenss, +upper abdominal tenderness. ). Negative for: Distention, Peritoneal Signs, Rebound, Guarding, Hernias Back: Positive for: Normal Inspection Upper Extremity: Positive for: Normal Inspection. Negative for: Cyanosis, Edema Lower Extremity: Positive for: Normal Inspection. Negative for: Edema Neurological: Positive for: GCS=15, CN II-XII Intact, Speech Normal Skin: Positive for: Warm, Dry, Normal Color. Negative for: Rashes Psychiatric: Positive for: Alert, Oriented x 3, Normal Insight, Normal Concentration - Medications Active Medications: Active Medications Generic Name Dose Route Start Last Admin Trade Name Freq PRN Reason Stop Dose Admin Sodium Chloride 1,000 mls @ 100 mls/hr 07/03/18 20:36 07/04/18 09:09 Sodium Chloride 0.9% IV 100 mls/hr .Q10H SHANICE Administration Piperacillin Sod/Tazobactam Sod 100 mls @ 200 mls/hr 07/04/18 12:00 07/04/18 12:26 Zosyn 3.375 In Ns 100ml IVPB 07/11/18 12:01 200 mls/hr Q6 SHANICE Administration Protocol Morphine Sulfate 4 mg 07/03/18 20:08 07/03/18 20:33 Morphine IVP 4 mg Q4H PRN Administration Pain, severe (8-10) - Patient Studies Lab Studies: Lab Studies 07/04/18 07/04/18 07/03/18 Range/Units 07:15 07:15 20:13 WBC 11.6 H (4.5-11.0) 10^3/ul RBC 4.44 (3.5-6.1) 10^6/uL Hgb 12.4 D (12.0-16.0) g/dL Hct 39.2 (36.0-48.0) % MCV 88.3 (80.0-105.0) fl MCH 27.9 (25.0-35.0) pg MCHC 31.6 (31.0-37.0) g/dl RDW 13.6 (11.5-14.5) % Plt Count 203 (120.0-450.0) 10^3/uL MPV 10.0 (7.0-11.0) fl Gran % 82.5 H (50.0-68.0) % Lymph % (Auto) 9.6 L (22.0-35.0) % [place] % (Auto) 7.6 H (1.0-6.0) % Eos % (Auto) 0.2 L (1.5-5.0) % Baso % (Auto) 0.1 (0.0-3.0) % Gran # 9.60 H (1.4-6.5) Lymph # (Auto) 1.1 L (1.2-3.4) [place] # (Auto) 0.9 H (0.1-0.6) Eos # (Auto) 0.0 (0.0-0.7) Baso # (Auto) 0.01 (0.0-2.0) K/mm3 Sodium 140 (132-148) mmol/L Potassium 3.3 L (3.6-5.0) mmol/L Chloride 111 H (98-107) mmol/L Carbon Dioxide 23 (21-33) mmol/L Anion Gap 9 L (10-20) BUN 10 (7-21) mg/dL Creatinine 0.7 (0.7-1.2) mg/dl Est GFR ( Amer) > 60 Est GFR (Non-Af Amer) > 60 Random Glucose 111 H (70-110) mg/dL Calcium 8.1 L (8.4-10.5) mg/dL Phosphorus 3.0 (2.5-4.5) mg/dL Magnesium 2.1 (1.7-2.2) mg/dL Total Bilirubin 0.8 (0.2-1.3) mg/dL AST 475 H D (14-36) U/L ALT 838 H (7-56) U/L Alkaline Phosphatase 125 (38-126) U/L Troponin I < 0.01 < 0.01 ng/mL Total Protein 6.0 (5.8-8.3) g/dL Albumin 3.3 (3.0-4.8) g/dL Globulin 2.7 gm/dL Albumin/Globulin Ratio 1.2 (1.1-1.8) Triglycerides 42 (35-160) mg/dL Amylase 344 H 489 H (35-125) U/L Laboratory Results - last 24 hr 07/03/18 07/04/18 07/04/18 20:13 07:15 07:15 WBC 11.6 H RBC 4.44 Hgb 12.4 D Hct 39.2 MCV 88.3 MCH 27.9 MCHC 31.6 RDW 13.6 Plt Count 203 MPV 10.0 Gran % 82.5 H Lymph % (Auto) 9.6 L [place] % (Auto) 7.6 H Eos % (Auto) 0.2 L Baso % (Auto) 0.1 Gran # 9.60 H Lymph # (Auto) 1.1 L [place] # (Auto) 0.9 H Eos # (Auto) 0.0 Baso # (Auto) 0.01 Sodium 140 Potassium 3.3 L Chloride 111 H Carbon Dioxide 23 Anion Gap 9 L BUN 10 Creatinine 0.7 Est GFR ( Amer) > 60 Est GFR (Non-Af Amer) > 60 Random Glucose 111 H Calcium 8.1 L Phosphorus 3.0 Magnesium 2.1 Total Bilirubin 0.8 AST 475 H D ALT 838 H Alkaline Phosphatase 125 Troponin I < 0.01 < 0.01 Total Protein 6.0 Albumin 3.3 Globulin 2.7 Albumin/Globulin Ratio 1.2 Triglycerides 42 Amylase 489 H 344 H EKG/Cardiology Studies: Cardiology / EKG Studies 07/03/18 19:18 ELECTROCARDIOGRAM Urgent Comment: Reason For Exam: abd pain, n/v, ekg changes PRE OP:: N Does Patient Have a Pacemaker?: No 07/04/18 02:00 EKG [ELECTROCARDIOGRAM] Routine Comment: Reason For Exam: diffuse abdominal pane,n/v,ekg changes. Critical Care Progress Note - Nutrition Nutrition: Nutrition Category Date Time Status Liquid Diet [DIET] Diets 07/04/18 Breakfast Ordered NPO Diet [DIET] Diets 07/05/18 Breakfast Ordered Assessment/Plan - Assessment and Plan (Free Text) Assessment: Neuro: AAO3 No FND Reorient as needed Cardio RRR Borderline Maintain MAP >65 Pulm Satting well on room air Maintain O2 Sat >95% GI: Elevated lipase, amylase, N/V CTAP = 1.5x1.5cm x2 stones in gall bladder; Pancreatitis Transaminitis 2/2 Cholelithiasis / Choledocolithiasis Will obtain MRCP today No evdidence of cholecystitis on Abd US GI Following Surgery consultation post MRCP regarding cholelithiais; Patient requesting Dr. Martínez Will advance diet as tolerated; currently tolerating clears well c/w IVF @ 100/hr Morphine 4 Q4PRN DC Merrem Started Zosyn Nephro/: BUN/Cr - 9/1.0 Replete lytes as needed Continue monitoring Heme: H/H Stable No signs of HD compromise Continue monitoring ID: Afebrile, No leukocytosis Bacteruria w/o Pyuria on UCx Asymptomatic Continue monitoring Patient seen, evaluated, and discussed w/ attendin gphysician Dr. Len Frazier DO PGY1 - Internal Medicine Instrument Man - Pager [phone] - Date & Time Date: 07/04/18 Time: 13:34 <Phillip Harrington - Last Filed: 07/05/18 13:53> CCU Objective - Vital Signs / Intake & Output Vital Signs (Last 4 hours): Vital Signs Temp Pulse Resp BP Pulse Ox 07/05/18 12:00 99.7 F H 86 24 127/66 94 L 07/05/18 11:00 72 21 140/81 95 07/05/18 10:00 84 26 H 114/58 L 93 L Intake and Output (Last 8hrs): Intake & Output 07/04/18 07/05/18 07/05/18 22:59 06:59 14:59 Intake Total 2900 1550 Output Total 1000 1000 Balance 1900 550 Weight 160 lb Intake: IV 1400 1400 0.9 200 Left Antecubital 1400 1200 Oral 1500 150 Output: Urine 1000 1000 Urine, Voided 1000 1000 Other: # Voids Urine, Voided 8 # Bowel Movements 1 - Medications Active Medications: Active Medications Generic Name Dose Route Start Last Admin Trade Name Freq PRN Reason Stop Dose Admin Sodium Chloride 1,000 mls @ 100 mls/hr 07/03/18 20:36 07/05/18 08:34 Sodium Chloride 0.9% IV 100 mls/hr .Q10H SHANICE Administration Piperacillin Sod/Tazobactam Sod 100 mls @ 200 mls/hr 07/04/18 12:00 07/05/18 11:25 Zosyn 3.375 In Ns 100ml IVPB 07/11/18 12:01 200 mls/hr Q6 SHANICE Administration Protocol Potassium Chloride 10 meq in 100 mls @ 50 mls/hr 07/05/18 12:00 07/05/18 12: 09 Potassium Chloride 10 Meq/100 Ml IVPB 07/05/18 15:59 50 mls/hr Q2H SHANICE Administration Morphine Sulfate 4 mg 07/03/18 20:08 07/04/18 22:15 Morphine IVP 4 mg Q4H PRN Administration Pain, severe (8-10) - Patient Studies Lab Studies: Microbiology Studies 07/04/18 08:30 Blood Culture - Preliminary Blood-Venous NO GROWTH AFTER 24 HOURS 07/04/18 07:00 Blood Culture - Preliminary Blood-Venous NO GROWTH AFTER 24 HOURS Lab Studies 07/05/18 07/05/18 07/04/18 Range/Units 06:10 06:10 08:30 WBC 15.8 H D (4.5-11.0) 10^3/ul RBC 4.35 (3.5-6.1) 10^6/uL Hgb 11.9 L (12.0-16.0) g/dL Hct 37.7 (36.0-48.0) % MCV 86.7 (80.0-105.0) fl MCH 27.4 (25.0-35.0) pg MCHC 31.6 (31.0-37.0) g/dl RDW 13.4 (11.5-14.5) % Plt Count 185 (120.0-450.0) 10^3/uL MPV 10.0 (7.0-11.0) fl Gran % 75.8 H (50.0-68.0) % Lymph % (Auto) 12.2 L (22.0-35.0) % [place] % (Auto) 10.0 H (1.0-6.0) % Eos % (Auto) 1.9 (1.5-5.0) % Baso % (Auto) 0.1 (0.0-3.0) % Gran # 11.98 H (1.4-6.5) Lymph # (Auto) 1.9 (1.2-3.4) [place] # (Auto) 1.6 H (0.1-0.6) Eos # (Auto) 0.3 (0.0-0.7) Baso # (Auto) 0.02 (0.0-2.0) K/mm3 Sodium 137 (132-148) mmol/L Potassium 3.3 L (3.6-5.0) mmol/L Chloride 105 (98-107) mmol/L Carbon Dioxide 23 (21-33) mmol/L Anion Gap 12 (10-20) BUN 8 (7-21) mg/dL Creatinine 0.6 L (0.7-1.2) mg/dl Est GFR ( Amer) > 60 Est GFR (Non-Af Amer) > 60 Random Glucose 90 (70-110) mg/dL Calcium 8.1 L (8.4-10.5) mg/dL Total Bilirubin 0.8 (0.2-1.3) mg/dL AST 157 H D (14-36) U/L ALT 541 H (7-56) U/L Alkaline Phosphatase 112 (38-126) U/L Total Protein 6.3 (5.8-8.3) g/dL Albumin 3.4 (3.0-4.8) g/dL Globulin 2.9 gm/dL Albumin/Globulin Ratio 1.2 (1.1-1.8) Hepatitis A IgM Ab Negative (NEGATIVE) Hep Bs Antigen Negative (NEGATIVE) Hep B Core IgM Ab Negative (NEGATIVE) Hepatitis C Antibody Negative (NEGATIVE) Laboratory Results - last 24 hr 07/04/18 07/05/18 07/05/18 08:30 06:10 06:10 WBC 15.8 H D RBC 4.35 Hgb 11.9 L Hct 37.7 MCV 86.7 MCH 27.4 MCHC 31.6 RDW 13.4 Plt Count 185 MPV 10.0 Gran % 75.8 H Lymph % (Auto) 12.2 L [place] % (Auto) 10.0 H Eos % (Auto) 1.9 Baso % (Auto) 0.1 Gran # 11.98 H Lymph # (Auto) 1.9 [place] # (Auto) 1.6 H Eos # (Auto) 0.3 Baso # (Auto) 0.02 Sodium 137 Potassium 3.3 L Chloride 105 Carbon Dioxide 23 Anion Gap 12 BUN 8 Creatinine 0.6 L Est GFR ( Amer) > 60 Est GFR (Non-Af Amer) > 60 Random Glucose 90 Calcium 8.1 L Total Bilirubin 0.8 AST 157 H D ALT 541 H Alkaline Phosphatase 112 Total Protein 6.3 Albumin 3.4 Globulin 2.9 Albumin/Globulin Ratio 1.2 Hepatitis A IgM Ab Negative Hep Bs Antigen Negative Hep B Core IgM Ab Negative Hepatitis C Antibody Negative Critical Care Progress Note - Nutrition Nutrition: Nutrition Category Date Time Status NPO Diet [DIET] Diets 07/05/18 Breakfast Ordered Addendum Addendum: 07/04/18 13:51 ICU Attending Addendum: Patient seen and examined. Case reviewed on round with housestaff. Agree with resident note above with the following additions/exceptions: 62 yr old female no PMH found to have pancreatitis likely secondary to gallstones for MRCP tomorrow Otherwise clinically improving LFTs trending down Lipase trending down as well Rest of care as noted above. Phillip Harrington MD Remote Broadcast Technician
--- NOTE | 2018-07-04 15:56 | CARD ---
APPROVED REPORT Date of service: 07/03/2018 EKG Measurement Heart [id number] <Conclusion> Sinus bradycardia T wave abnormality, consider anterior ischemia Abnormal ECG
--- NOTE | 2018-07-04 16:01 | CARD ---
APPROVED REPORT Date of service: 07/03/2018 EKG Measurement Heart [id number] <Conclusion> Normal sinus rhythm ST & T wave abnormality, consider anterior ischemia Abnormal ECG
--- NOTE | 2018-07-04 16:39 | CARD ---
APPROVED REPORT Date of service: 07/04/2018 EXAM: Two-dimensional and M-mode echocardiogram with Doppler and color Doppler. INDICATION Chest Pain 2D DIMENSIONS RVDd2.7 (2.9-3.5cm)Left Atrium (2D)4.1 (1.6-4.0cm) IVSd0.8 (0.7-1.1cm)LVDd4.4 (3.9-5.9cm) PWd0.8 (0.7-1.1cm)LVDs2.7 (2.5-4.0cm) FS (%) 37.6 %LVEF (%)67.9 (>50%) M-Mode DIMENSIONS Aortic Root2.90 (2.2-3.7cm)Aortic Cusp Exc.1.50 (1.5-2.0cm) Aortic Valve AoV Peak Ukftesfq254.0cm/Hiwot Peak GR.13mmHg Mitral Valve MV E Sdqbfrzs11.0cm/sMV A Jhxvdstq53.7cm/sE/A ratio0.8 TDI Lateral E' Peak V9.36cm/sMedial E' Peak V10.50cm/sE/Lateral E'8.5 E/Medial E'7.6 Pulmonary Valve PV Peak Kiikdvnp17.4cm/sPV Peak Grad.3mmHg Tricuspid Valve TR Peak Glbfsnul333io/sRAP [id number] Peak Gr.34mmHg [id number] LEFT VENTRICLE The left ventricle is normal size. There is normal left ventricular wall thickness. The left ventricular function is normal.EF-65-70 There is normal LV segmental wall motion. Transmitral Doppler flow pattern is Grade III-reversible restrictive diastolic dysfunction. No left ventricle thrombus noted on this study. There is no ventricular septal defect visualized. There is no left ventricular aneurysm. There is no mass noted in the left ventricle. RIGHT VENTRICLE The right ventricle is normal size. There is normal right ventricular wall thickness. The right ventricular systolic function is normal. ATRIA The left atrium is borderline dilated. The right atrium size is normal. The interatrial septum is intact with no evidence for an atrial septal defect. AORTIC VALVE The aortic valve is thickened but opens well. The aortic valve is mildly sclerotic. There is trace aortic regurgitation. There is no aortic valvular stenosis. There is no aortic valvular vegetation. MITRAL VALVE The mitral valve is thickened but opens well. Mitral regurgitation is trace. There is no mitral valve stenosis. There is no evidence of mitral valve prolapse. TRICUSPID VALVE The tricuspid valve leaflets are thickened , but open well. There is trace to mild tricuspid regurgitation.RVSP-44 mm of Hg. There is no tricuspid valve stenosis. There is no tricuspid valve prolapse or vegetation. PULMONIC VALVE The pulmonary valve is normal in structure. There is no pulmonic valvular regurgitation. There is no pulmonic valvular stenosis. GREAT VESSELS The aortic root is normal in size. The ascending aorta is normal in size. The pulmonary artery is normal. The IVC is normal in size and collapses >50% with inspiration. PERICARDIAL EFFUSION There is no pleural effusion. There is no pericardial effusion. <Conclusion> The left ventricle is normal size. There is normal left ventricular wall thickness. There is trace aortic regurgitation. Mitral regurgitation is trace. There is trace to mild tricuspid regurgitation.RVSP-44 mm of Hg. The IVC is normal in size and collapses >50% with inspiration. There is no pericardial effusion.
[2018-07-04 17:01] LABS: HEPATITIS B SURFACE AG Negative (NEGATIVE)
[2018-07-04 17:07] LABS: HEPATITIS A IGM NEGATIVE (NEGATIVE); HEPATITIS B CORE AB NEGATIVE (NEGATIVE)
[2018-07-04 17:19] LABS: HEPATITIS C ANTIBODY NEGATIVE (NEGATIVE)
[2018-07-04] MEDS: Morphine 4 mg/ml ISec IVP PRN (22:15)
--- NOTE | 2018-07-05 01:16 | CON ---
DATE: 07/04/2018 REASON FOR CONSULTATION: Abnormal EKG, cardiac evaluation, admitted with acute pancreatitis. 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 She said after dinner, she has developed some abdominal discomfort and started throwing up after . So came to the emergency room, found to be possible acute pancreatitis. EKG shows normal sinus with lateral wall ST-T changes. Cardiology consult was called. Patient denies any chest pain, denies any shortness of breath, denies any palpitation. PAST MEDICAL HISTORY: Significant for hyperlipidemia. No documented history of coronary artery disease. FAMILY HISTORY: Noncontributory. SOCIAL HISTORY: Denies any smoking. Denies any history of alcohol abuse. CURRENT MEDICATIONS: Patient takes Crestor 10 mg daily. ALLERGIES: NO KNOWN DRUG ALLERGIES. REVIEW OF SYSTEMS: As per HPI. PHYSICAL EXAMINATION: VITAL SIGNS: Temperature afebrile, heart rate 80, blood pressure 108/56. HEENT: PERRLA. Extraocular muscles intact. NECK: Supple. No carotid bruits or thyromegaly. CHEST: Clear to auscultation. HEART: S1, S2 regular. ABDOMEN: Soft. EXTREMITIES: Clubbing and cyanosis negative. LABORATORY DATA: Blood workup as follows: WBC 11.6, hemoglobin 12.5, hematocrit 39.2, platelet count 203. Chemistry shows sodium 140, potassium 3.3, chloride 111, carbon dioxide 20, anion gap of 9, BUN 10, creatinine 0.7. AST 475, ALT 838, initially admitting AST was 1362 and ALT was 1442. Lactate dehydrogenase 4255. Serum amylase 489, lipase 5541. Troponin 0.01 negative. EKG shows normal sinus, lateral wall some ST-T changes. Ultrasound of the gallbladder, mild hepatic steatosis, suggested other etiology is possible. No intrahepatic biliary dilatation. Otherwise unremarkable. 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 Cardiology consult was called because of the lateral changes. So far no evidence of acute myocardial infarction. No documented history of coronary artery disease, not much risk factor of hyperlipidemia. Admitted with acute pancreatitis. Workup for pancreatitis is in progress and the patient is n.p.o. RECOMMENDATIONS: We will get lipid profile, TSH, hemoglobin A1c, serial CPK and troponin, get echo. Further recommendations pending hospital course. We will follow with you. Thank you, Dr. Wakler, for providing us the opportunity in taking care of patient Clara Dodge. Jennifer Landers MD
[2018-07-05] MEDS: Piperacillin/Tazobact 3.375 gm 100 ML IVPB SCH ×4 (06:00→23:05)
[2018-07-05 07:13] LABS: BASO # 0.02 K/mm3 (0.0-2.0); BASO % 0.1 % (0.0-3.0); EOS # 0.3 (0.0-0.7); EOS % 1.9 % (1.5-5.0); GRAN # 11.98 (1.4-6.5); GRAN % 75.8 % (50.0-68.0); HEMOGLOBIN 11.9 g/dL (12.0-16.0); LYMPH # 1.9 (1.2-3.4); LYMPH % 12.2 % (22.0-35.0); MEAN CELL VOLUME 86.7 fl (80.0-105.0); MEAN CORPUSCULAR HEMOGLOBIN 27.4 pg (25.0-35.0); MEAN CORPUSCULAR HGB CONC 31.6 g/dl (31.0-37.0); MONO # 1.6 (0.1-0.6); RBC 4.35 10^6/uL (3.5-6.1); RED CELL DISTRIBUTION WIDTH 13.4 % (11.5-14.5); WHITE BLOOD COUNT 15.8 10^3/ul (4.5-11.0)
[2018-07-05 07:23] LABS: ALB/GLOB RATIO 1.2 (1.1-1.8); ALBUMIN 3.4 g/dL (3.0-4.8); ALT/SGPT 541 U/L (7-56); AST/SGOT 157 U/L (14-36); BLOOD UREA NITROGEN 8 mg/dL (7-21); CALCIUM 8.1 mg/dL (8.4-10.5); GFR NON-AFRICAN AMERICAN > 60
--- NOTE | 2018-07-05 08:17 | CP.PCM.PN ---
<BriananileshkwabenaManinder - Last Filed: 07/05/18 19:05> Subjective - Date & Time of Evaluation Date of Evaluation: 07/05/18 Time of Evaluation: 08:14 - Subjective Subjective: GI Fellow PGY4, Patient is doing well this AM. No acute overnight events. Tolerating CLD, +BM. Abdominal pain is improving. 5pt ROS neg except for above. Objective - Vital Signs/Intake and Output Vital Signs (last 24 hours): Temp Pulse Resp BP Pulse Ox 98.2 F 73 15 135/80 93 L 07/05/18 04:00 07/05/18 06:00 07/05/18 05:00 07/05/18 05:00 07/05/18 05:00 Intake and Output: 07/05/18 07/05/18 06:59 18:59 Intake Total 1550 Output Total 1000 Balance 550 - Medications Medications: Current Medications Sodium Chloride (Sodium Chloride 0.9%) 1,000 mls @ 100 mls/hr IV .Q10H SHANICE Last Admin: 07/04/18 21:16 Dose: 100 mls/hr Piperacillin Sod/Tazobactam Sod (Zosyn 3.375 In Ns 100ml) 100 mls @ 200 mls/hr IVPB Q6 SHANICE PRN Reason: Protocol Stop: 07/11/18 12:01 Last Admin: 07/05/18 06:00 Dose: 200 mls/hr Morphine Sulfate (Morphine) 4 mg IVP Q4H PRN PRN Reason: Pain, severe (8-10) Last Admin: 07/04/18 22:15 Dose: 4 mg - Labs Labs: 07/05/18 06:10 07/05/18 06:10 PT 11.7 SECONDS (9.4-12.5) 07/03/18 16:00 INR 1.03 07/03/18 16:00 APTT 27.3 Seconds (25.1-36.5) 07/03/18 16:00 - Constitutional Appears: Non-toxic, No Acute Distress - Eye Exam Eye Exam: Normal appearance - ENT Exam ENT Exam: Mucous Membranes Moist - Respiratory Exam Respiratory Exam: Clear to Ausculation Bilateral, NORMAL BREATHING PATTERN. absent: Rales - Cardiovascular Exam Cardiovascular Exam: REGULAR RHYTHM, +S1, +S2 - GI/Abdominal Exam GI & Abdominal Exam: Soft, Normal Bowel Sounds. absent: Tenderness - Extremities Exam Extremities Exam: Normal Inspection - Neurological Exam Neurological Exam: Alert, Awake, Oriented x3 - Psychiatric Exam Psychiatric exam: Normal Affect, Normal Mood - Skin Skin Exam: Dry, Normal Color Assessment and Plan - Assessment and Plan (Free Text) Assessment: 62F with minimal medical history presenting with acute abdominal pain consistent with pancreatitis and gallstones found on imaging. #Gallstone pancreatitis #Elevated liver enzymes #Hepatosteatosis #HLD #?Pulm HTN - RVSP 44. PLAN: -CT and US review and agree with cholelithiasis, pancreatitis, hepatosteatosis -Patient is clinically improving. -Currently NPO for MRCP. She can advance to low fat, low protein diet after test. She is to go slow, and stop if worsening abdominal pain, nausea, vomiting. -Slowly advance to low fat, protein diet. -Continue fluids per ICU/primary, monitor for fluid overload -Continue to trend ast,alt,hct,bun -Hold statin, other hepatotoxic meds. -MRCP today as Cr is stable, normal. -Defer abnormal echo findings to cardiology <Joe Hu V - Last Filed: 07/06/18 00:41> Objective - Vital Signs/Intake and Output Vital Signs (last 24 hours): Temp Pulse Resp BP Pulse Ox 98.9 F 63 14 106/57 L 96 07/05/18 17:41 07/06/18 00:00 07/06/18 00:00 07/06/18 00:00 07/06/18 00:00 Intake and Output: 07/05/18 07/06/18 18:59 06:59 Intake Total 1500 Output Total 2300 Balance -800 - Medications Medications: Current Medications Piperacillin Sod/Tazobactam Sod (Zosyn 3.375 In Ns 100ml) 100 mls @ 200 mls/hr IVPB Q6 SHANICE PRN Reason: Protocol Stop: 07/11/18 12:01 Last Admin: 07/05/18 23:05 Dose: 200 mls/hr Morphine Sulfate (Morphine) 4 mg IVP Q4H PRN PRN Reason: Pain, severe (8-10) Last Admin: 07/05/18 22:27 Dose: 4 mg - Labs Labs: 07/05/18 06:10 07/05/18 06:10 PT 11.7 SECONDS (9.4-12.5) 07/03/18 16:00 INR 1.03 07/03/18 16:00 APTT 27.3 Seconds (25.1-36.5) 07/03/18 16:00 Attending/Attestation - Attestation I have personally seen and examined this patient.: Yes I have fully participated in the care of the patient.: Yes I have reviewed all pertinent clinical information, including history, physical exam and plan: Yes Notes (Text): This is an addendum to GI progress report dictated by the GI Fellow.The patient was seen and examined earlier. Medical records, lab studies, imagings were reviewed. Last 24 hours events reviewed. Agreed with the above treatment plan as outlined in GI Fellow 's notes with the addition of the following Patient was feeling bter in the night she had knee episode of abdominalpain unclear liquids LFT shows significant omprovement On examination mild terferness present ine epigastric area MRCP was reviewed no CBD stone Follow-up LFT if continues downward trend would recommend lap mikala with IOC discussed with the Dr Walker 07/06/18 00:38
[2018-07-05] MEDS: Sodium Chloride 0.9% 1,000 ML IV SCH (08:34)
--- NOTE | 2018-07-05 08:57 | CP.CCUPN ---
<Cris Wu - Last Filed: 07/05/18 12:53> CCU Subjective - Physician Review Subjective (Free Text): Seen and examined at bedside; no acute events overnight Tolerating diet well; no worsening complaints of abd pain No N/V w/ diet. Remainder of 12 system ROS is negative at this time. 07/05/18 08:56 CCU Objective - Vital Signs / Intake & Output Vital Signs (Last 4 hours): Vital Signs Pulse Resp BP Pulse Ox 07/05/18 06:00 73 07/05/18 05:00 73 15 135/80 93 L Intake and Output (Last 8hrs): Intake & Output 07/04/18 07/05/18 07/05/18 22:59 06:59 14:59 Intake Total 2900 1550 Output Total 1000 1000 Balance 1900 550 Weight 160 lb Intake: IV 1400 1400 0.9 200 Left Antecubital 1400 1200 Oral 1500 150 Output: Urine 1000 1000 Urine, Voided 1000 1000 Other: # Voids Urine, Voided 8 # Bowel Movements 1 - Physical Exam Head: Positive for: Atraumatic, Normocephalic Pupils: Positive for: PERRL Extroacular Muscles: Positive for: EOMI Conjunctiva: Positive for: Normal Mouth: Positive for: Moist Mucous Membranes Neck: Positive for: Normal Range of Motion Respiratory/Chest: Positive for: Clear to Auscultation, Good Air Exchange. Negative for: Respiratory Distress, Accessory Muscle Use Cardiovascular: Positive for: Regular Rate and Rhythm, Normal S1, S2. Negative for: Murmurs Abdomen: Positive for: Tenderness (mild epigastric tenderness). Negative for: Distention, Peritoneal Signs, Rebound, Guarding, Hernias Back: Positive for: Normal Inspection Upper Extremity: Positive for: Normal Inspection. Negative for: Cyanosis, Edema Lower Extremity: Positive for: Normal Inspection. Negative for: Edema Neurological: Positive for: GCS=15, CN II-XII Intact, Speech Normal Skin: Positive for: Warm, Dry, Normal Color. Negative for: Rashes Psychiatric: Positive for: Alert, Oriented x 3, Normal Insight, Normal Concentration - Medications Active Medications: Active Medications Generic Name Dose Route Start Last Admin Trade Name Freq PRN Reason Stop Dose Admin Sodium Chloride 1,000 mls @ 100 mls/hr 07/03/18 20:36 07/05/18 08:34 Sodium Chloride 0.9% IV 100 mls/hr .Q10H SHANICE Administration Piperacillin Sod/Tazobactam Sod 100 mls @ 200 mls/hr 07/04/18 12:00 07/05/18 06:00 Zosyn 3.375 In Ns 100ml IVPB 07/11/18 12:01 200 mls/hr Q6 SHANICE Administration Protocol Morphine Sulfate 4 mg 07/03/18 20:08 07/04/18 22:15 Morphine IVP 4 mg Q4H PRN Administration Pain, severe (8-10) - Patient Studies Lab Studies: Microbiology Studies 07/04/18 08:30 Blood Culture - Preliminary Blood-Venous NO GROWTH AFTER 24 HOURS 07/04/18 07:00 Blood Culture - Preliminary Blood-Venous NO GROWTH AFTER 24 HOURS Lab Studies 07/05/18 07/05/18 07/04/18 Range/Units 06:10 06:10 08:30 WBC 15.8 H D (4.5-11.0) 10^3/ul RBC 4.35 (3.5-6.1) 10^6/uL Hgb 11.9 L (12.0-16.0) g/dL Hct 37.7 (36.0-48.0) % MCV 86.7 (80.0-105.0) fl MCH 27.4 (25.0-35.0) pg MCHC 31.6 (31.0-37.0) g/dl RDW 13.4 (11.5-14.5) % Plt Count 185 (120.0-450.0) 10^3/uL MPV 10.0 (7.0-11.0) fl Gran % 75.8 H (50.0-68.0) % Lymph % (Auto) 12.2 L (22.0-35.0) % [place] % (Auto) 10.0 H (1.0-6.0) % Eos % (Auto) 1.9 (1.5-5.0) % Baso % (Auto) 0.1 (0.0-3.0) % Gran # 11.98 H (1.4-6.5) Lymph # (Auto) 1.9 (1.2-3.4) [place] # (Auto) 1.6 H (0.1-0.6) Eos # (Auto) 0.3 (0.0-0.7) Baso # (Auto) 0.02 (0.0-2.0) K/mm3 Sodium 137 (132-148) mmol/L Potassium 3.3 L (3.6-5.0) mmol/L Chloride 105 (98-107) mmol/L Carbon Dioxide 23 (21-33) mmol/L Anion Gap 12 (10-20) BUN 8 (7-21) mg/dL Creatinine 0.6 L (0.7-1.2) mg/dl Est GFR ( Amer) > 60 Est GFR (Non-Af Amer) > 60 Random Glucose 90 (70-110) mg/dL Calcium 8.1 L (8.4-10.5) mg/dL Total Bilirubin 0.8 (0.2-1.3) mg/dL AST 157 H D (14-36) U/L ALT 541 H (7-56) U/L Alkaline Phosphatase 112 (38-126) U/L Total Protein 6.3 (5.8-8.3) g/dL Albumin 3.4 (3.0-4.8) g/dL Globulin 2.9 gm/dL Albumin/Globulin Ratio 1.2 (1.1-1.8) Hepatitis A IgM Ab Negative (NEGATIVE) Hep Bs Antigen Negative (NEGATIVE) Hep B Core IgM Ab Negative (NEGATIVE) Hepatitis C Antibody Negative (NEGATIVE) Laboratory Results - last 24 hr 07/04/18 07/05/18 07/05/18 08:30 06:10 06:10 WBC 15.8 H D RBC 4.35 Hgb 11.9 L Hct 37.7 MCV 86.7 MCH 27.4 MCHC 31.6 RDW 13.4 Plt Count 185 MPV 10.0 Gran % 75.8 H Lymph % (Auto) 12.2 L [place] % (Auto) 10.0 H Eos % (Auto) 1.9 Baso % (Auto) 0.1 Gran # 11.98 H Lymph # (Auto) 1.9 [place] # (Auto) 1.6 H Eos # (Auto) 0.3 Baso # (Auto) 0.02 Sodium 137 Potassium 3.3 L Chloride 105 Carbon Dioxide 23 Anion Gap 12 BUN 8 Creatinine 0.6 L Est GFR ( Amer) > 60 Est GFR (Non-Af Amer) > 60 Random Glucose 90 Calcium 8.1 L Total Bilirubin 0.8 AST 157 H D ALT 541 H Alkaline Phosphatase 112 Total Protein 6.3 Albumin 3.4 Globulin 2.9 Albumin/Globulin Ratio 1.2 Hepatitis A IgM Ab Negative Hep Bs Antigen Negative Hep B Core IgM Ab Negative Hepatitis C Antibody Negative Review of Systems - Review of Systems All systems: reviewed and no additional remarkable complaints except Review of Systems: as per HPI Critical Care Progress Note - Nutrition Nutrition: Nutrition Category Date Time Status NPO Diet [DIET] Diets 07/05/18 Breakfast Ordered Assessment/Plan - Assessment and Plan (Free Text) Assessment: 62 yr old female no PMH recovering s/p gallstone pancreatitis. Gallstones visualized on CT. AST, ALT, Alkaline phosphatase, bilirubin and lactate all improved today. Patient afebrile overnight. Patient to go fro MRCP today with GI team. Plan: Neuro: AAO3 No FND Reorient as needed Cardio RRR normotensive Maintain MAP >65 Pulm Satting well on room air Maintain O2 Sat >95% GI: LFT, bili, lactate all improved CTAP = 1.5x1.5cm x2 stones in gall bladder; Pancreatitis Transaminitis 2/2 Cholelithiasis Will obtain MRCP today No evidence of cholecystitis on Abd US GI Following Surgery consultation post MRCP regarding cholelithiais; Patient requesting Dr. Martínez Will advance diet as tolerated; currently tolerating clears well c/w IVF @ 100/hr Morphine 4 Q4PRN Nephro/: BUN/Cr - 9/1.0 Replete lytes as needed Continue monitoring Heme: H/H Stable No signs of HD compromise Continue monitoring ID: Afebrile, WBC 15.8, likely reactive Bacteruria w/o Pyuria on UCx Asymptomatic Continue monitoring Cris Wu, PGY 1 - Date & Time Date: 07/05/18 Time: 07:45 <Phillip Harrington - Last Filed: 07/05/18 13:53> CCU Objective - Vital Signs / Intake & Output Vital Signs (Last 4 hours): Vital Signs Temp Pulse Resp BP Pulse Ox 07/05/18 12:00 99.7 F H 86 24 127/66 94 L 07/05/18 11:00 72 21 140/81 95 07/05/18 10:00 84 26 H 114/58 L 93 L Intake and Output (Last 8hrs): Intake & Output 07/04/18 07/05/18 07/05/18 22:59 06:59 14:59 Intake Total 2900 1550 Output Total 1000 1000 Balance 1900 550 Weight 160 lb Intake: IV 1400 1400 0.9 200 Left Antecubital 1400 1200 Oral 1500 150 Output: Urine 1000 1000 Urine, Voided 1000 1000 Other: # Voids Urine, Voided 8 # Bowel Movements 1 - Medications Active Medications: Active Medications Generic Name Dose Route Start Last Admin Trade Name Freq PRN Reason Stop Dose Admin Sodium Chloride 1,000 mls @ 100 mls/hr 07/03/18 20:36 07/05/18 08:34 Sodium Chloride 0.9% IV 100 mls/hr .Q10H SHANICE Administration Piperacillin Sod/Tazobactam Sod 100 mls @ 200 mls/hr 07/04/18 12:00 07/05/18 11:25 Zosyn 3.375 In Ns 100ml IVPB 07/11/18 12:01 200 mls/hr Q6 SHANCIE Administration Protocol Potassium Chloride 10 meq in 100 mls @ 50 mls/hr 07/05/18 12:00 07/05/18 12: 09 Potassium Chloride 10 Meq/100 Ml IVPB 07/05/18 15:59 50 mls/hr Q2H SHANICE Administration Morphine Sulfate 4 mg 07/03/18 20:08 07/04/18 22:15 Morphine IVP 4 mg Q4H PRN Administration Pain, severe (8-10) - Patient Studies Lab Studies: Microbiology Studies 07/04/18 08:30 Blood Culture - Preliminary Blood-Venous NO GROWTH AFTER 24 HOURS 07/04/18 07:00 Blood Culture - Preliminary Blood-Venous NO GROWTH AFTER 24 HOURS Lab Studies 07/05/18 07/05/18 07/04/18 Range/Units 06:10 06:10 08:30 WBC 15.8 H D (4.5-11.0) 10^3/ul RBC 4.35 (3.5-6.1) 10^6/uL Hgb 11.9 L (12.0-16.0) g/dL Hct 37.7 (36.0-48.0) % MCV 86.7 (80.0-105.0) fl MCH 27.4 (25.0-35.0) pg MCHC 31.6 (31.0-37.0) g/dl RDW 13.4 (11.5-14.5) % Plt Count 185 (120.0-450.0) 10^3/uL MPV 10.0 (7.0-11.0) fl Gran % 75.8 H (50.0-68.0) % Lymph % (Auto) 12.2 L (22.0-35.0) % [place] % (Auto) 10.0 H (1.0-6.0) % Eos % (Auto) 1.9 (1.5-5.0) % Baso % (Auto) 0.1 (0.0-3.0) % Gran # 11.98 H (1.4-6.5) Lymph # (Auto) 1.9 (1.2-3.4) [place] # (Auto) 1.6 H (0.1-0.6) Eos # (Auto) 0.3 (0.0-0.7) Baso # (Auto) 0.02 (0.0-2.0) K/mm3 Sodium 137 (132-148) mmol/L Potassium 3.3 L (3.6-5.0) mmol/L Chloride 105 (98-107) mmol/L Carbon Dioxide 23 (21-33) mmol/L Anion Gap 12 (10-20) BUN 8 (7-21) mg/dL Creatinine 0.6 L (0.7-1.2) mg/dl Est GFR ( Amer) > 60 Est GFR (Non-Af Amer) > 60 Random Glucose 90 (70-110) mg/dL Calcium 8.1 L (8.4-10.5) mg/dL Total Bilirubin 0.8 (0.2-1.3) mg/dL AST 157 H D (14-36) U/L ALT 541 H (7-56) U/L Alkaline Phosphatase 112 (38-126) U/L Total Protein 6.3 (5.8-8.3) g/dL Albumin 3.4 (3.0-4.8) g/dL Globulin 2.9 gm/dL Albumin/Globulin Ratio 1.2 (1.1-1.8) Hepatitis A IgM Ab Negative (NEGATIVE) Hep Bs Antigen Negative (NEGATIVE) Hep B Core IgM Ab Negative (NEGATIVE) Hepatitis C Antibody Negative (NEGATIVE) Laboratory Results - last 24 hr 07/04/18 07/05/18 07/05/18 08:30 06:10 06:10 WBC 15.8 H D RBC 4.35 Hgb 11.9 L Hct 37.7 MCV 86.7 MCH 27.4 MCHC 31.6 RDW 13.4 Plt Count 185 MPV 10.0 Gran % 75.8 H Lymph % (Auto) 12.2 L [place] % (Auto) 10.0 H Eos % (Auto) 1.9 Baso % (Auto) 0.1 Gran # 11.98 H Lymph # (Auto) 1.9 [place] # (Auto) 1.6 H Eos # (Auto) 0.3 Baso # (Auto) 0.02 Sodium 137 Potassium 3.3 L Chloride 105 Carbon Dioxide 23 Anion Gap 12 BUN 8 Creatinine 0.6 L Est GFR ( Amer) > 60 Est GFR (Non-Af Amer) > 60 Random Glucose 90 Calcium 8.1 L Total Bilirubin 0.8 AST 157 H D ALT 541 H Alkaline Phosphatase 112 Total Protein 6.3 Albumin 3.4 Globulin 2.9 Albumin/Globulin Ratio 1.2 Hepatitis A IgM Ab Negative Hep Bs Antigen Negative Hep B Core IgM Ab Negative Hepatitis C Antibody Negative Critical Care Progress Note - Nutrition Nutrition: Nutrition Category Date Time Status NPO Diet [DIET] Diets 07/05/18 Breakfast Ordered Addendum Addendum: 07/05/18 13:53 ICU Attending Addendum: Patient seen and examined. Case reviewed on round with housestaff. Agree with resident note above with the following additions/exceptions: 62 yr old female no PMH found to have pancreatitis likely secondary to gallstones for MRCP today Otherwise clinically improving LFTs trending down Lipase trending down as well Rest of care as noted above. Phillip Harrington MD Choir Singer
[2018-07-05] MEDS ORDERED: Potassium Chloride 20 mEq ER Tab PO ONE (11:56)
[2018-07-05] MEDS ORDERED: Gadodiamide 287 MG/ML VIAL (15ML) IV ONE (12:37)
--- NOTE | 2018-07-05 14:03 | MRI ---
Date of service: 07/05/2018 PROCEDURE: MRI Abdomen with and without contrast plus MRCP imaging HISTORY: Gallstone pancreatitis COMPARISON: None available. TECHNIQUE: Multisequence, multiplanar MR images of the abdomen with and without gadolinium contrast enhancement. 15 cc of Omniscan FINDINGS: LIVER: Unremarkable. GALLBLADDER: Large gallstones are seen averaging between 10 and 13 mm in diameter. The gallbladder is filled with stones. There are no surrounding inflammatory changes. The common duct is normal in caliber measuring 5 mm. There are no stones in the common duct. SPLEEN: Unremarkable. PANCREAS: Unremarkable. ADRENALS: Unremarkable. KIDNEYS: Unremarkable. AORTA: No aneurysm. ASCITES: None. PERITONEUM: Unremarkable. LYMPH NODES: Unremarkable. OTHER FINDINGS: There are no enhancing lesions IMPRESSION: Large gallstones are seen averaging between 10 and 13 mm in diameter. The gallbladder is filled with stones. There are no surrounding inflammatory changes. The common duct is normal in caliber measuring 5 mm. There are no stones in the common duct.
--- NOTE | 2018-07-05 14:30 | PN ---
DATE: 07/05/2018 REASON FOR CONSULTATION AND FOLLOWUP: Abnormal EKG, cardiac evaluation, admitted with acute pancreatitis. SUBJECTIVE: Patient denies any chest pain, shortness of breath, any palpitations. PHYSICAL EXAMINATION: GENERAL: Not in apparent distress. VITAL SIGNS: Temperature afebrile, heart rate 84, blood pressure 114/58. HEENT: PERRLA. Extraocular muscles intact. NECK: Supple. No carotid bruits or thyromegaly. CHEST: Clear to auscultation. HEART: S1, S2, regular. ABDOMEN: Soft. EXTREMITIES: Clubbing and cyanosis negative. LABORATORY DATA: Blood workup as follows: WBC 15.2, hemoglobin 11.9, hematocrit 37.7, platelet count 185. Chemistry shows sodium , potassium 3.2, chloride 105, CO2 of 23, anion gap 12, BUN 8, creatinine of 0.6. Troponin 0.01, negative. Amylase 344, yesterday lipase 5541. 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 Cardiology consult was called because of ST-T changes in lateral wall; so far, no evidence of acute myocardial infarction. Echo: Patient had echocardiography done yesterday that revealed normal left ventricular thickness, trace aortic regurgitation, trace mitral regurgitation, [id number] tricuspid regurgitation, left ventricular ejection fraction of 65-70%. Patient is going for ERCP. Suggest the patient to have a risk stratification as outpatient. Arrangement has been made for stress test in four weeks. CVS is stable. We will follow with you. So far no evidence of acute NH, no evidence of anginal symptoms, no evidence of arrhythmia, no evidence of CHF. Patient is cleared from Cardiology point of view to go for ERCP. We will follow with you. Jennifer Landers MD
--- NOTE | 2018-07-05 18:55 | PN ---
DATE: 07/05/2018 SUBJECTIVE: The patient is in bed. She was seen early this morning in room 129, bed 4. The patient's family members are asleep and in tears next to the patient. PHYSICAL EXAMINATION: VITAL SIGNS: Temperature is 99, blood pressure is 120/60, respiratory rate of 24, heart rate of 86. HEENT: Unremarkable. NECK: Supple. LUNGS: Have decreased breath sounds. HEART: Normal S1, S2. ABDOMINAL: Soft. LABORATORY EXAMINATION: Reveals a white count of 15,800, hemoglobin 11, platelets of 185. Chemistries reveals a BUN of 8, creatinine of 0.6. The patient's lipase is over 5000. Urinalysis is noted and toxicology is noted. Serology is reviewed. Microbiology reveals the blood cultures are negative. Nasal MRSA screen is negative and the patient had an MRCP. Large gallstones seen averaging between 10 and 13. Gallbladder is filled with stones. Common bile duct is normal in caliber. No stones in common bile duct. ASSESSMENT AND PLAN: A 62-year-old with dyslipidemia, appendectomy. Admitted with systemic inflammatory response syndrome, acute pancreatitis with gallstone pancreatitis, history of section and appendectomy on Zosyn. Negative blood cultures. Dr. Landers's note is reviewed. Dr. Harrington's note is reviewed. We will follow with you. Review of orders in terms of Zosyn to be active. Wade Mackay MD
[2018-07-05] MEDS: Morphine 4 mg/ml ISec IVP PRN (22:27)
--- NOTE | 2018-07-06 00:07 | PN ---
DATE: 07/05/2018 SUBJECTIVE: The patient has no complaints of any chest pain. No shortness of breath, no headaches or dizziness. PHYSICAL EXAMINATION VITAL SIGNS: Temperature is 98.9, pulse of 86, blood pressure is 142/75, respiration is . GENERAL: The patient is lying in bed, flat, comfortable. HEENT: No oral lesion. Anicteric sclerae. Moist mucosa. NECK: No JVD, adenopathy, or thyromegaly. CARDIOVASCULAR: S1 and S2, regular. No murmurs, rubs, or gallops. LUNGS: Clear to auscultation bilaterally. No wheeze, rales, or rhonchi. ABDOMEN: Bowel sounds are positive, soft, nontender and nondistended. EXTREMITIES: No cyanosis, clubbing or edema. LABORATORY DATA: White count of 15.8, hemoglobin 11.9. Creatinine 0.6, potassium 3.3. ASSESSMENT: 1. Acute pancreatitis. 2. Cholelithiasis. 3. Transaminitis. 4. Hypokalemia. PLAN: The patient is currently comfortable. She is okay. She had echo done that was essentially normal. The patient had an MRCP that shows a large gallstone that was seen in the gallbladder, but no surrounding inflammation. She probably has passed her stone. I did speak to Dr. Hu regarding the case. The patient does have an elevated white count today. She has blood cultures and urine cultures that have been negative. Her LFTs have improved significantly. She is being followed by Infectious Disease as well. She is on morphine for pain as needed. She is on IV fluids. I will decrease her IV fluids. She remains n.p.o. She is currently on Zosyn for antibiotics. I will advance her diet to a full liquid diet to see if she can tolerate. Dre Walker MD
[2018-07-06] MEDS: Piperacillin/Tazobact 3.375 gm 100 ML IVPB SCH ×2 (05:15→11:52)
[2018-07-06 06:41] VITALS: TEMP 98.2
[2018-07-06 07:19] LABS: BASO # 0.03 K/mm3 (0.0-2.0); BASO % 0.2 % (0.0-3.0); EOS # 0.5 (0.0-0.7); EOS % 3.1 % (1.5-5.0); GRAN # 10.73 (1.4-6.5); GRAN % 71.1 % (50.0-68.0); HEMOGLOBIN 13.5 g/dL (12.0-16.0); LYMPH # 2.7 (1.2-3.4); LYMPH % 17.8 % (22.0-35.0); MEAN CELL VOLUME 85.9 fl (80.0-105.0); MEAN CORPUSCULAR HGB CONC 32.5 g/dl (31.0-37.0); MEAN PLATELET VOLUME 9.9 fl (7.0-11.0); MONO # 1.2 (0.1-0.6); MONO % 7.8 % (1.0-6.0); RBC 4.83 10^6/uL (3.5-6.1); RED CELL DISTRIBUTION WIDTH 13.2 % (11.5-14.5); WHITE BLOOD COUNT 15.1 10^3/ul (4.5-11.0)
[2018-07-06 07:47] LABS: ALB/GLOB RATIO 1.3 (1.1-1.8); ALBUMIN 4.4 g/dL (3.0-4.8); ALT/SGPT 460 U/L (7-56); AST/SGOT 98 U/L (14-36); BLOOD UREA NITROGEN 9 mg/dL (7-21); CALCIUM 9.2 mg/dL (8.4-10.5); GFR NON-AFRICAN AMERICAN > 60
[2018-07-06 09:08] VITALS: O2SAT 93
[2018-07-06] MEDS ORDERED: Potassium Chloride 20 mEq ER Tab PO ONE (09:11)
--- NOTE | 2018-07-06 11:48 | CP.PCM.PN ---
Subjective - Date & Time of Evaluation Date of Evaluation: 07/06/18 Time of Evaluation: 11:35 - Subjective Subjective: GI Fellow PGY4, She is doing well. No acute overnight events. afeb,HDS. She was able to tolerate heart health, low fat diet without pain this AM. She has no pain. Patient spoke with primary and surgeon. Planning outpatient lap mikala. 5pt ROS neg except for above. Objective - Vital Signs/Intake and Output Vital Signs (last 24 hours): Temp Pulse Resp BP Pulse Ox 98.2 F 90 23 120/61 93 L 07/06/18 04:00 07/06/18 09:00 07/06/18 09:00 07/06/18 09:00 07/06/18 09:00 Intake and Output: 07/06/18 07/06/18 06:59 18:59 Intake Total 550 Output Total 1900 Balance -1350 - Medications Medications: Current Medications Piperacillin Sod/Tazobactam Sod (Zosyn 3.375 In Ns 100ml) 100 mls @ 200 mls/hr IVPB Q6 SHANICE PRN Reason: Protocol Stop: 07/11/18 12:01 Last Admin: 07/06/18 05:15 Dose: 200 mls/hr Morphine Sulfate (Morphine) 4 mg IVP Q4H PRN PRN Reason: Pain, severe (8-10) Last Admin: 07/05/18 22:27 Dose: 4 mg - Labs Labs: 07/06/18 07:00 07/06/18 07:00 PT 11.7 SECONDS (9.4-12.5) 07/03/18 16:00 INR 1.03 07/03/18 16:00 APTT 27.3 Seconds (25.1-36.5) 07/03/18 16:00 - Constitutional Appears: Non-toxic, No Acute Distress - Head Exam Head Exam: NORMAL INSPECTION - Eye Exam Eye Exam: Normal appearance - ENT Exam ENT Exam: Mucous Membranes Moist - Respiratory Exam Respiratory Exam: Clear to Ausculation Bilateral, NORMAL BREATHING PATTERN - Cardiovascular Exam Cardiovascular Exam: REGULAR RHYTHM - GI/Abdominal Exam GI & Abdominal Exam: Soft, Tenderness, Normal Bowel Sounds Additional comments: She has RUQ abdominal pain with mild/moderate palpation. - Extremities Exam Extremities Exam: Normal Inspection - Neurological Exam Neurological Exam: Alert, Awake, Oriented x3 - Psychiatric Exam Psychiatric exam: Normal Affect, Normal Mood - Skin Skin Exam: Dry, Normal Color Assessment and Plan - Assessment and Plan (Free Text) Assessment: 62F with minimal medical history presenting with acute abdominal pain consistent with pancreatitis and gallstones found on imaging. #Gallstone pancreatitis #Elevated liver enzymes #Hepatosteatosis #HLD #?Pulm HTN - RVSP 44. PLAN: -CT and US review and agree with cholelithiasis, pancreatitis, hepatosteatosis -MRCP showing gallstones, normal CBD -Patient is clinically improving. Very eager to go home. She states she is being discharged today. -Currently low fat, low protein diet. She is to go slow, and stop if worsening abdominal pain, nausea, vomiting. -Slowly advance to low fat, protein diet. -Continue fluids per ICU/primary, monitor for fluid overload -Hold statin, other hepatotoxic meds. -Alk phos mildly elevated today compared to yesterday, there is always a risk of evolving stone that could pass again. -Recommend IOC at time of surgery to r/o CBD stone. -Recommend f/u labs (CMP, CBC) as out pt in 3 days if discharged. -Patient stating she is going home, does not want to stay in the hospital. She has surgery to be planned within the week. Educated patient that symptomatic gallstone (cholecystitis or pancreatitis) can occur at any time and she will need to come to the hospital if worsening pain or changing symptoms. Patient understands.
[2018-07-06 12:00] VITALS: RESP 21
--- NOTE | 2018-07-06 12:06 | CP.CCUPN ---
<Cris Wu - Last Filed: 07/06/18 12:14> CCU Subjective - Physician Review Subjective (Free Text): Seen and examined at bedside; no acute events overnight Tolerating diet well; no worsening complaints of abd pain No N/V w/ diet. Remainder of 12 system ROS is negative at this time. 07/06/18 12:02 CCU Objective - Vital Signs / Intake & Output Vital Signs (Last 4 hours): Vital Signs Pulse Resp BP Pulse Ox 07/06/18 11:00 86 21 120/62 07/06/18 10:00 85 21 122/71 93 L 07/06/18 09:00 90 23 120/61 93 L 07/06/18 08:57 89 20 07/06/18 08:56 87 23 07/06/18 08:55 85 20 07/06/18 08:54 94 H 07/06/18 08:53 92 H 25 H 07/06/18 08:52 90 19 07/06/18 08:51 88 20 07/06/18 08:50 89 19 07/06/18 08:49 89 20 07/06/18 08:48 91 H 44 H 07/06/18 08:47 106 H 116 H 07/06/18 08:46 102 H 24 07/06/18 08:45 107 H 30 H 07/06/18 08:44 104 H 115 H 07/06/18 08:43 105 H 27 H 07/06/18 08:42 101 H 54 H 07/06/18 08:41 89 26 H 07/06/18 08:40 86 07/06/18 08:39 86 23 07/06/18 08:38 96 H 43 H 07/06/18 08:37 91 H 68 H 07/06/18 08:07 84 38 H 140/61 94 L Intake and Output (Last 8hrs): Intake & Output 07/05/18 07/06/18 07/06/18 22:59 06:59 14:59 Intake Total 1500 550 Output Total 2300 1900 Balance -800 -1350 Intake: IV 1500 300 0.9 300 Left Antecubital 1500 Oral 250 Output: Urine 2300 1900 Urine, Voided 2300 1900 - Physical Exam Head: Positive for: Atraumatic, Normocephalic Pupils: Positive for: PERRL Extroacular Muscles: Positive for: EOMI Conjunctiva: Positive for: Normal Mouth: Positive for: Moist Mucous Membranes Neck: Positive for: Normal Range of Motion Respiratory/Chest: Positive for: Clear to Auscultation, Good Air Exchange. Negative for: Respiratory Distress, Accessory Muscle Use Cardiovascular: Positive for: Regular Rate and Rhythm, Normal S1, S2. Negative for: Murmurs Abdomen: Positive for: Tenderness (+epigastric tenderenss, +RUQ abdominal tenderness. ). Negative for: Distention, Peritoneal Signs, Rebound, Guarding, Hernias Back: Positive for: Normal Inspection Upper Extremity: Positive for: Normal Inspection. Negative for: Cyanosis, Edema Lower Extremity: Positive for: Normal Inspection. Negative for: Edema Neurological: Positive for: GCS=15, CN II-XII Intact, Speech Normal Skin: Positive for: Warm, Dry, Normal Color. Negative for: Rashes Psychiatric: Positive for: Alert, Oriented x 3, Normal Insight, Normal Concentration - Medications Active Medications: Active Medications Generic Name Dose Route Start Last Admin Trade Name Freq PRN Reason Stop Dose Admin Piperacillin Sod/Tazobactam Sod 100 mls @ 200 mls/hr 07/04/18 12:00 07/06/18 11:52 Zosyn 3.375 In Ns 100ml IVPB 07/11/18 12:01 200 mls/hr Q6 SHANICE Administration Protocol Morphine Sulfate 4 mg 07/03/18 20:08 07/05/18 22:27 Morphine IVP 4 mg Q4H PRN Administration Pain, severe (8-10) - Patient Studies Lab Studies: Microbiology Studies 07/04/18 08:30 Blood Culture - Preliminary Blood-Venous NO GROWTH AFTER 48 HOURS 07/04/18 07:00 Blood Culture - Preliminary Blood-Venous NO GROWTH AFTER 48 HOURS 07/03/18 18:00 Urine Culture - Final Urine No Growth (<1,000 CFU/ML) 07/03/18 20:00 MRSA Culture (Admit) - Final Nose MRSA NOT DETECTED Lab Studies 07/06/18 07/06/18 Range/Units 07:00 07:00 WBC 15.1 H (4.5-11.0) 10^3/ul RBC 4.83 (3.5-6.1) 10^6/uL Hgb 13.5 (12.0-16.0) g/dL Hct 41.5 (36.0-48.0) % MCV 85.9 (80.0-105.0) fl MCH 28.0 (25.0-35.0) pg MCHC 32.5 (31.0-37.0) g/dl RDW 13.2 (11.5-14.5) % Plt Count 208 (120.0-450.0) 10^3/uL MPV 9.9 (7.0-11.0) fl Gran % 71.1 H (50.0-68.0) % Lymph % (Auto) 17.8 L (22.0-35.0) % Freeborn % (Auto) 7.8 H (1.0-6.0) % Eos % (Auto) 3.1 (1.5-5.0) % Baso % (Auto) 0.2 (0.0-3.0) % Gran # 10.73 H (1.4-6.5) Lymph # (Auto) 2.7 (1.2-3.4) Freeborn # (Auto) 1.2 H (0.1-0.6) Eos # (Auto) 0.5 (0.0-0.7) Baso # (Auto) 0.03 (0.0-2.0) K/mm3 Sodium 139 (132-148) mmol/L Potassium 3.8 (3.6-5.0) mmol/L Chloride 101 (98-107) mmol/L Carbon Dioxide 23 (21-33) mmol/L Anion Gap 19 (10-20) BUN 9 (7-21) mg/dL Creatinine 0.7 (0.7-1.2) mg/dl Est GFR ( Amer) > 60 Est GFR (Non-Af Amer) > 60 Random Glucose 83 (70-110) mg/dL Calcium 9.2 (8.4-10.5) mg/dL Total Bilirubin 1.1 (0.2-1.3) mg/dL AST 98 H D (14-36) U/L ALT 460 H (7-56) U/L Alkaline Phosphatase 137 H D (38-126) U/L Total Protein 7.9 (5.8-8.3) g/dL Albumin 4.4 (3.0-4.8) g/dL Globulin 3.5 gm/dL Albumin/Globulin Ratio 1.3 (1.1-1.8) Laboratory Results - last 24 hr 07/06/18 07/06/18 07:00 07:00 WBC 15.1 H RBC 4.83 Hgb 13.5 Hct 41.5 MCV 85.9 MCH 28.0 MCHC 32.5 RDW 13.2 Plt Count 208 MPV 9.9 Gran % 71.1 H Lymph % (Auto) 17.8 L Free[place] % (Auto) 7.8 H Eos % (Auto) 3.1 Baso % (Auto) 0.2 Gran # 10.73 H Lymph # (Auto) 2.7 Freeborn # (Auto) 1.2 H Eos # (Auto) 0.5 Baso # (Auto) 0.03 Sodium 139 Potassium 3.8 Chloride 101 Carbon Dioxide 23 Anion Gap 19 BUN 9 Creatinine 0.7 Est GFR ( Amer) > 60 Est GFR (Non-Af Amer) > 60 Random Glucose 83 Calcium 9.2 Total Bilirubin 1.1 AST 98 H D ALT 460 H Alkaline Phosphatase 137 H D Total Protein 7.9 Albumin 4.4 Globulin 3.5 Albumin/Globulin Ratio 1.3 Review of Systems - Review of Systems All systems: reviewed and no additional remarkable complaints except Review of Systems: as per HPI Critical Care Progress Note - Nutrition Nutrition: Nutrition Category Date Time Status Heart Healthy Diet [DIET] Diets 07/06/18 Breakfast Active Assessment/Plan - Assessment and Plan (Free Text) Assessment: 62 yr old female no PMH recovering s/p gallstone pancreatitis. Gallstones visualized on CT, US and MRCP. Patient afebrile overnight WBC count improving. Pain is improving, tolerating diet well, walking halls. Patient is cleared for transfer from the ICU today. Plan: Neuro: AAO3 No FND Reorient as needed Cardio RRR normotensive Maintain MAP >65 Pulm Satting well on room air Maintain O2 Sat >95% GI: AST/ALT improving, bili and alkphos increased slightly today MRCP confirmed stones in GB, no choledocholithiasis CTAP = 1.5x1.5cm x2 stones in gall bladder; Pancreatitis Transaminitis 2/2 Cholelithiasis No evidence of cholecystitis on Abd US GI Following Surgery on board, will plan for cholecystectomy after resolution of pancreatitis Will advance diet as tolerated; currently tolerating clears well c/w IVF @ 100/hr Morphine 4 Q4PRN Nephro/: BUN/Cr - 19/0.7 Replete lytes as needed Continue monitoring Heme: H/H Stable No signs of HD compromise Continue monitoring ID: Afebrile, WBC 15.1, improving, likely reactive Bacteruria w/o Pyuria on UCx Asymptomatic Continue monitoring Discussed and seen with Dr. Len Wu, PGY 1 - Date & Time Date: 07/06/18 <Phillip Harrington - Last Filed: 07/06/18 15:35> CCU Objective - Vital Signs / Intake & Output Vital Signs (Last 4 hours): Vital Signs Pulse Resp BP 07/06/18 13:01 120/43 L 07/06/18 12:59 80 21 07/06/18 12:00 84 22 147/83 Intake and Output (Last 8hrs): Intake & Output 07/06/18 07/06/18 07/06/18 06:59 14:59 22:59 Intake Total 550 100 Output Total 1900 900 Balance -1350 -800 Intake: IV 300 100 0.9 300 Left Antecubital 100 Oral 250 Output: Urine 1900 900 Urine, Voided 1900 900 - Patient Studies Lab Studies: Microbiology Studies 07/04/18 08:30 Blood Culture - Preliminary Blood-Venous NO GROWTH AFTER 48 HOURS 07/04/18 07:00 Blood Culture - Preliminary Blood-Venous NO GROWTH AFTER 48 HOURS 07/03/18 18:00 Urine Culture - Final Urine No Growth (<1,000 CFU/ML) 07/03/18 20:00 MRSA Culture (Admit) - Final Nose MRSA NOT DETECTED Lab Studies 07/06/18 07/06/18 Range/Units 07:00 07:00 WBC 15.1 H (4.5-11.0) 10^3/ul RBC 4.83 (3.5-6.1) 10^6/uL Hgb 13.5 (12.0-16.0) g/dL Hct 41.5 (36.0-48.0) % MCV 85.9 (80.0-105.0) fl MCH 28.0 (25.0-35.0) pg MCHC 32.5 (31.0-37.0) g/dl RDW 13.2 (11.5-14.5) % Plt Count 208 (120.0-450.0) 10^3/uL MPV 9.9 (7.0-11.0) fl Gran % 71.1 H (50.0-68.0) % Lymph % (Auto) 17.8 L (22.0-35.0) % Freeborn % (Auto) 7.8 H (1.0-6.0) % Eos % (Auto) 3.1 (1.5-5.0) % Baso % (Auto) 0.2 (0.0-3.0) % Gran # 10.73 H (1.4-6.5) Lymph # (Auto) 2.7 (1.2-3.4) Freeborn # (Auto) 1.2 H (0.1-0.6) Eos # (Auto) 0.5 (0.0-0.7) Baso # (Auto) 0.03 (0.0-2.0) K/mm3 Sodium 139 (132-148) mmol/L Potassium 3.8 (3.6-5.0) mmol/L Chloride 101 (98-107) mmol/L Carbon Dioxide 23 (21-33) mmol/L Anion Gap 19 (10-20) BUN 9 (7-21) mg/dL Creatinine 0.7 (0.7-1.2) mg/dl Est GFR ( Amer) > 60 Est GFR (Non-Af Amer) > 60 Random Glucose 83 (70-110) mg/dL Calcium 9.2 (8.4-10.5) mg/dL Total Bilirubin 1.1 (0.2-1.3) mg/dL AST 98 H D (14-36) U/L ALT 460 H (7-56) U/L Alkaline Phosphatase 137 H D (38-126) U/L Total Protein 7.9 (5.8-8.3) g/dL Albumin 4.4 (3.0-4.8) g/dL Globulin 3.5 gm/dL Albumin/Globulin Ratio 1.3 (1.1-1.8) Laboratory Results - last 24 hr 07/06/18 07/06/18 07:00 07:00 WBC 15.1 H RBC 4.83 Hgb 13.5 Hct 41.5 MCV 85.9 MCH 28.0 MCHC 32.5 RDW 13.2 Plt Count 208 MPV 9.9 Gran % 71.1 H Lymph % (Auto) 17.8 L Free[place] % (Auto) 7.8 H Eos % (Auto) 3.1 Baso % (Auto) 0.2 Gran # 10.73 H Lymph # (Auto) 2.7 Freeborn # (Auto) 1.2 H Eos # (Auto) 0.5 Baso # (Auto) 0.03 Sodium 139 Potassium 3.8 Chloride 101 Carbon Dioxide 23 Anion Gap 19 BUN 9 Creatinine 0.7 Est GFR ( Amer) > 60 Est GFR (Non-Af Amer) > 60 Random Glucose 83 Calcium 9.2 Total Bilirubin 1.1 AST 98 H D ALT 460 H Alkaline Phosphatase 137 H D Total Protein 7.9 Albumin 4.4 Globulin 3.5 Albumin/Globulin Ratio 1.3 Critical Care Progress Note - Nutrition Nutrition: Nutrition Category Date Time Status Heart Healthy Diet [DIET] Diets 07/06/18 Breakfast Active Addendum Addendum: 07/06/18 15:35 ICU Attending Addendum: Patient seen and examined. Case reviewed on round with housestaff. Agree with resident note above with the following additions/exceptions: 62 yr old female no PMH found to have pancreatitis likely secondary to gallstones MRCP shows clear CBD but stones in GB Otherwise clinically improving LFTs trending down Lipase trending down as well Cholecystectomy deferred to later date stable for transfer out of ICU Rest of care as noted above. Phillip Harrington MD Representative Personal Service
--- NOTE | 2018-07-06 12:43 | CP.PCM.CON ---
History of Present Illness - History of Present Illness History of Present Illness: General Surgery Consult for Dr. Saldivar Consulted for: gallstone pancreatitis Pt is a 62F with PMH of HLD and PSH: appendectomy and 3 c-sections who presented to the ED 4 days ago for severe abdominal pain for 1 day. Patient states that the pain was diffuse, constant, and worsening, associated with multiple episodes of non-bilious, non-bloody emesis. Patient denied any diarrhea or constipation or dysuria, hematuria, hematochezia, melena, or any other symptoms. Patient was found to have elevated lipase and pancreatitis and gallstones on CT scan, as well as gallstones but no signs of cholecystitis or ductal dilation on the Ultrasound. Patient was admitted to the ICU and received an MRCP, which showed no signs of choledocholithiasis or acute cholecystitis. Patient states that her pain is greatly improved, she has no nausea or vomiting , or any other symptoms at this time. Currently tolerating her heart healthy diet. Patient has had no prior episodes of pancreatitis. PMH: HLD PSH: 3c-sections, appendectomy ALL: NKDA Social: no smoking history, no ETOH, no illicit drugs Review of Systems - Review of Systems All systems: reviewed and no additional remarkable complaints except (as per HPI ) Past Patient History - Past Medical History & Family History Past Medical History?: Yes Past Family History: Reviewed and not pertinent - Past Social History Smoking Status: Never Smoked Alcohol: None Drugs: Denies - CARDIAC Hx Hypercholesterolemia: Yes - PULMONARY Hx Respiratory Disorders: No - MUSCULOSKELETAL/RHEUMATOLOGICAL Hx Falls: No - PSYCHIATRIC Hx Substance Use: No - SURGICAL HISTORY Hx Appendectomy: Yes Hx Section: Yes - ANESTHESIA Hx Anesthesia: Yes Hx Anesthesia Reactions: No Meds Allergies/Adverse Reactions: Allergies Allergy/AdvReac Type Severity Reaction Status Date / Time No Known Allergies Allergy Verified 07/03/18 13:28 - Medications Medications: Current Medications Piperacillin Sod/Tazobactam Sod (Zosyn 3.375 In Ns 100ml) 100 mls @ 200 mls/hr IVPB Q6 SHANICE PRN Reason: Protocol Stop: 07/11/18 12:01 Last Admin: 07/06/18 11:52 Dose: 200 mls/hr Morphine Sulfate (Morphine) 4 mg IVP Q4H PRN PRN Reason: Pain, severe (8-10) Last Admin: 07/05/18 22:27 Dose: 4 mg Physical Exam - Constitutional Appears: Well, Non-toxic, No Acute Distress - Head Exam Head Exam: ATRAUMATIC, NORMOCEPHALIC - Eye Exam Eye Exam: Normal appearance. absent: Conjunctival injection, Scleral icterus - ENT Exam ENT Exam: Mucous Membranes Moist, Normal Oropharynx - Respiratory Exam Respiratory Exam: NORMAL BREATHING PATTERN. absent: Accessory Muscle Use, Respiratory Distress - Cardiovascular Exam Cardiovascular Exam: RRR - GI/Abdominal Exam GI & Abdominal Exam: Soft. absent: Distended, Tenderness - Extremities Exam Extremities exam: Positive for: pedal pulses present. Negative for: calf tenderness, tenderness - Neurological Exam Neurological exam: Alert, Oriented x3 - Psychiatric Exam Psychiatric exam: Normal Affect, Normal Mood - Skin Skin Exam: Dry, Normal Color, Warm Results - Vital Signs Recent Vital Signs: Last Vital Signs Temp 98.2 F 07/06/18 04:00 Pulse 86 07/06/18 11:00 Resp 21 07/06/18 11:00 BP 120/62 07/06/18 11:00 Pulse Ox 93 L 07/06/18 10:00 - Labs Result Diagrams: 07/06/18 07:00 07/06/18 07:00 Labs: Laboratory Results - last 24 hr 07/06/18 07/06/18 07:00 07:00 WBC 15.1 H RBC 4.83 Hgb 13.5 Hct 41.5 MCV 85.9 MCH 28.0 MCHC 32.5 RDW 13.2 Plt Count 208 MPV 9.9 Gran % 71.1 H Lymph % (Auto) 17.8 L Ross % (Auto) 7.8 H Eos % (Auto) 3.1 Baso % (Auto) 0.2 Gran # 10.73 H Lymph # (Auto) 2.7 Ross # (Auto) 1.2 H Eos # (Auto) 0.5 Baso # (Auto) 0.03 Sodium 139 Potassium 3.8 Chloride 101 Carbon Dioxide 23 Anion Gap 19 BUN 9 Creatinine 0.7 Est GFR ( Amer) > 60 Est GFR (Non-Af Amer) > 60 Random Glucose 83 Calcium 9.2 Total Bilirubin 1.1 AST 98 H D ALT 460 H Alkaline Phosphatase 137 H D Total Protein 7.9 Albumin 4.4 Globulin 3.5 Albumin/Globulin Ratio 1.3 Assessment & Plan - Assessment and Plan (Free Text) Assessment: 62F with gallstone pancreatitis Plan: Continue to trend cbc/cmp--patient's WBC is elevated but mildly improved from yesterday. T bili within normal limits. PRN pain and nausea medication Continue antibiotics Patient is electing to go home for outpatient follow up for elective cholecystectomy--no cholecystectomy planned this admission. If patient becomes more symptomatic or has worsening labs will reconsider Discussed and examined with Dr. Janna Mcdaniel, PGY2
[2018-07-06 13:03] VITALS: BP 120/43; PULSE 80
--- NOTE | 2018-07-06 13:59 | PN ---
DATE: 07/06/2018 REASON FOR CONSULTATION AND FOLLOWUP: Abnormal EKG, cardiac evaluation, admitted with acute pancreatitis, cholelithiasis, ERCP done yesterday, MRCP shows large gallstone in the gallbladder. SUBJECTIVE: Patient denies any chest pain, shortness of breath or any palpitations. OBJECTIVE: GENERAL: Not in apparent distress. VITAL SIGNS: Temperature afebrile, blood pressure 120/61. HEENT: PERRLA. Extraocular muscles intact. NECK: Supple. No carotid bruits or thyromegaly. CHEST: Clear to auscultation. HEART: S1, S2 regular. ABDOMEN: Soft. EXTREMITIES: Clubbing and cyanosis negative. LABORATORY DATA: Blood workup as follows: WBC 15.1, hemoglobin 13.5, hematocrit 41.5, platelet count 208. Chemistry shows sodium 130, potassium 3.8, chloride 101, CO2 of 23, anion gap 19, BUN 9, creatinine of 0.7. Total bilirubin 1.1, AST 98, ALT 460, alkaline phosphatase 137. 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 There is no evidence of acute myocardial infarction. The patient will be possibly discharged home, follow up probably elective cholecystectomy, is scheduled for a stress test for risk stratification in four weeks on 08/01/2018. Discussed with the patient. Echo shows trace aortic regurgitation, trace mitral regurgitation, trace tricuspid regurgitation, right ventricular systolic pressure 44, ejection fraction of 65-70%. We will follow with you. The patient is clear to go for cholecystectomy. No contraindication, no evidence of ischemia, no evidence of arrhythmia. No evidence of chest pain, angina, or CHF. Again, the patient is clear to go for gallbladder surgery with [id number] risks secondary to underlying condition, but there is no absolute contraindication. We will supplement potassium. Thank you, Dr. Walker, for providing us the opportunity in taking care of the patient, Clara Dodge. Jennifer Landers MD
--- NOTE | 2018-07-06 15:40 | CP.PCM.PN ---
Subjective - Date & Time of Evaluation Date of Evaluation: 07/06/18 Time of Evaluation: 09:35 - Subjective Subjective: No fevers, not in distress, abdominal pain much improved, no nausea or diarrhea. Objective - Vital Signs/Intake and Output Vital Signs (last 24 hours): Temp Pulse Resp BP Pulse Ox 98.2 F 121 H 91 H 134/72 95 07/06/18 04:00 07/06/18 06:35 07/06/18 06:35 07/06/18 06:01 07/06/18 06:01 Intake and Output: 07/06/18 07/06/18 06:59 18:59 Intake Total 550 Output Total 1900 Balance -1350 - Medications Medications: Current Medications Piperacillin Sod/Tazobactam Sod (Zosyn 3.375 In Ns 100ml) 100 mls @ 200 mls/hr IVPB Q6 SHANICE PRN Reason: Protocol Stop: 07/11/18 12:01 Last Admin: 07/06/18 05:15 Dose: 200 mls/hr Morphine Sulfate (Morphine) 4 mg IVP Q4H PRN PRN Reason: Pain, severe (8-10) Last Admin: 07/05/18 22:27 Dose: 4 mg - Labs Labs: 07/05/18 06:10 07/05/18 06:10 PT 11.7 SECONDS (9.4-12.5) 07/03/18 16:00 INR 1.03 07/03/18 16:00 APTT 27.3 Seconds (25.1-36.5) 07/03/18 16:00 - Constitutional Appears: No Acute Distress - Head Exam Head Exam: NORMAL INSPECTION - Respiratory Exam Respiratory Exam: Decreased Breath Sounds. absent: Rales - Cardiovascular Exam Cardiovascular Exam: +S1, +S2 - GI/Abdominal Exam GI & Abdominal Exam: Soft. absent: Tenderness Assessment and Plan - Assessment and Plan (Free Text) Plan: Assessment Systemic Inflammatory response syndrome due to acute pancreatitis, no evidence choledocholelithiasis on MRCP, most likely gallstone pancreatitis dyslipidemia S/P appendectomy S/P Plan cultures have been negative, can monitor the patient off antibiotics patient will eventually need cholecystectomy
--- NOTE | 2018-07-07 08:15 | PN ---
DATE OF SERVICE: 07/06/2018 SUBJECTIVE: The patient has no complaints of any chest pain. No shortness of breath. She says her abdomen is comfortable. She had an MRCP done yesterday, I did speak to Dr. Hu. The patient probably had a stone that passed. Her acute pancreatitis has improved. Her LFTs have improved as well. She tolerates her diet, we will be able to discharge her today. PHYSICAL EXAMINATION: VITAL SIGNS: Temperature is 98.9, pulse of 79, blood pressure is 106/57, respirations 14, O2 saturation 96%. GENERAL: The patient is lying in bed, flat, comfortable. HEENT: No oral lesion. Anicteric sclerae. Moist mucosa. NECK: No JVD, adenopathy, or thyromegaly. CARDIOVASCULAR: S1 and S2, regular. No murmurs, rubs, or gallops. LUNGS: Clear to auscultation bilaterally. No wheeze, rales, or rhonchi. ABDOMEN: Bowel sounds are positive, soft, nontender and nondistended. EXTREMITIES: No cyanosis, clubbing or edema. ASSESSMENT: 1. Acute pancreatitis, resolved. 2. Cholelithiasis. 3. Transaminitis. 4. Hypokalemia. PLAN: The patient will most likely need an elective cholecystectomy. She will be seen by Surgery. She is on morphine for pain. She is on Zosyn for antibiotics. Her blood cultures and urine cultures have been negative. She did have a mildly elevated white cell count, I will wait for the repeat white cell count to see if it is normal. The patient was hypokalemic and potassium was replaced. Dre Walker MD
== END 2018-07-06 14:50 | disposition home or self-care (01) | DRG 439 ==
LOC: ED 13:17 → ERH 17:16 → OBSVTOIN 17:54 → ERH 18:04 → CCU 19:35
PROVIDERS: ADMIT Internal Medicine Medical Oncology; ATTEND Internal Medicine Nephrology
DX: K85.10 Biliary acute pancreatitis without necrosis or infection (principal); R65.10 Systemic inflammatory response syndrome (SIRS) of non-infectious origin without acute organ dysfunction; K80.20 Calculus of gallbladder without cholecystitis without obstruction; K76.0 Fatty (change of) liver, not elsewhere classified; E78.00 Pure hypercholesterolemia, unspecified; E87.6 Hypokalemia; Z90.49 Acquired absence of other specified parts of digestive tract

== ENCOUNTER 2018-08-02 06:22 | Day surgery (SDC) | payer OTHER ==
[2018-08-02] MEDS ORDERED: Propofol 10 mg/ml Inj (20 ML) ONE (09:06)
[2018-08-02] MEDS ORDERED: Midazolam 2 MG/2 ML VIAL ONE (09:07)
[2018-08-02] MEDS ORDERED: Iohexol 240 (50 ml) ONE (09:10)
[2018-08-02] MEDS ORDERED: Bupivacaine 0.5% 50 ML IJ ONE (09:10)
[2018-08-02] MEDS ORDERED: CeFAZolin 1 gm in NS 100ml IVPB ONE (09:25)
[2018-08-02] MEDS ORDERED: Bupivacaine 0.5% Inj(30mL) IJ ONE ×2 (09:30)
[2018-08-02] MEDS ORDERED: Rocuronium 10 mg/ml (5 ml) ONE (09:36)
[2018-08-02] MEDS ORDERED: Neostigmine Methylsulfate 3mg/3ml Syringe IV ONE (10:31)
[2018-08-02] MEDS ORDERED: HYDROmorphone 1 mg/ml ISec IVP PRN (10:56)
[2018-08-02] MEDS ORDERED: Lactated Ringer's 1,000 ML IV SCH (11:00)
--- NOTE | 2018-08-02 11:02 | PCM.SURG1 ---
Surgeon's Initial Post Op Note - Surgeon's Notes Surgeon: Dr. Saldivar [employer] Service Technician: Dr. Loving PGY3 Type of Anesthesia: General Endo Pre-Operative Diagnosis: symptomatic cholelithiasis Operative Findings: see operative report Post-Operative Diagnosis: same Operation Performed: laparoscopic cholecystectomy with intraoperative cholangiogram Specimen/Specimens Removed: gallbladder Estimated Blood Loss: EBL {In ML}: 5 Blood Products Given: N/A Drains Used: No Drains Post-Op Condition: Good Date of Surgery/Procedure: 08/02/18 Time of Surgery/Procedure: 11:02
[2018-08-02 12:20] VITALS: RESP 18; TEMP 97.8
--- NOTE | 2018-08-02 13:52 | RAD ---
Date of service: 08/02/2018 PROCEDURE: Operative cholangiogram HISTORY: R/O STONES COMPARISON: TECHNIQUE: 32 sec of fluoro time were used. 2 images were submitted FINDINGS: Contrast flows into the duodenum without obstruction. There are no filling defects seen in the common duct. IMPRESSION: As above
[2018-08-02 14:06] VITALS: BP 150/63; PULSE 72; O2SAT 96
--- NOTE | 2018-08-03 03:37 | OP ---
PROCEDURE DATE: 08/02/2018 PREOPERATIVE DIAGNOSES: Chronic cholecystitis, cholelithiasis. POSTOPERATIVE DIAGNOSES: Chronic cholecystitis, cholelithiasis. PROCEDURE PERFORMED: Laparoscopic cholecystectomy with intraoperative cholangiogram. SURGEON: Rohit Saldivar MD PARALEGALS: Dr. Loving. ANESTHESIOLOGIST: Humberto Barker MD ANESTHESIA: General endotracheal anesthesia. ESTIMATED BLOOD LOSS: Minimal. SPECIMEN: Gallbladder with stones. INDICATIONS: The patient is a 62-year-old female with recurrent right upper quadrant abdominal pain and cholelithiasis. Patient recently was admitted for pancreatitis secondary to gallstones. Patient now come back for elective laparoscopic cholecystectomy. DESCRIPTION OF PROCEDURE: The patient was brought to the operating room, placed on the operating table in supine position. The patient was connected to the EKG, blood pressure, and pulse oximetry monitors. The patient then underwent general endotracheal anesthesia and was prepped and draped in usual sterile fashion. First, standard time-out procedure took place, and everybody in the room agreed as to the patient*s identity, diagnosis, and procedure to be performed. Using two towel clips, the anterior abdominal wall was elevated and the Veress needle was inserted through the small incision superior to the umbilicus. Once pneumoperitoneum was obtained, a 12-mm trocar was inserted through that incision and careful evaluation of abdominal cavity revealed the presence of distended gallbladder with some omental adhesions. A second 5-mm trocar was inserted in the subxiphoid position through the falciform ligament, allowing me to elevate the gallbladder, grab by the infundibulum and carefully dissect the area of the cystic duct. Cystic duct was pushed away and the cystic duct was exposed and from the surrounding tissues. Cystic artery, which was directly behind, it was also identified. At this point, cystic duct was clipped proximally and small incision was made on the side of it, an access to the cystic duct lumen was obtained. A cholangiocatheter was inserted into the cystic duct lumen and cholangiogram was obtained under direct visualization of fluoroscopy that showed prompt flow of dye into the entire biliary tree and emptying into the duodenum without any obstruction. We then removed the cholangiocatheter and cystic duct was clipped distally and transected. Cystic artery was also clipped and transected and the gallbladder was carefully taken out, off the liver bed using the electrocautery. Once completely detached, it was placed into the EndoCatch bag and removed through the periumbilical incision. The liver bed appeared to be clean and dry and there was no bleeding noted. The right upper quadrant was copiously irrigated. All the irrigant fluid was suctioned out. The pneumoperitoneum was now released. Trocars were removed and wound was closed using 0 Vicryl for the fascia, 3-0 Vicryl for subcutaneous tissue and 4-0 Monocryl for skin. A sterile Dermabond dressing was applied to the wound. The patient tolerated the procedure well and there were no complications. The patient was awakened and transferred to the recovery room for further observation. Rohit Saldivar MD
== END 2018-08-02 15:20 | disposition home or self-care (01) ==
LOC: SDS 06:22
PROVIDERS: ATTEND General Practice
DX: K80.10 Calculus of gallbladder with chronic cholecystitis without obstruction (principal)

== ENCOUNTER 2018-08-04 18:26 | Observation (INO) | payer OTHER ==
[2018-08-04] MEDS ORDERED: Sodium Chloride 0.9% 500 ML IV STA (19:09)
--- NOTE | 2018-08-04 19:10 | ED PDOC ---
Arrival/HPI - General Chief Complaint: Abdominal Pain Time Seen by Provider: 08/04/18 19:03 Historian: Patient - History of Present Illness Narrative History of Present Illness (Text): 08/04/18 19:03 62 y/o female, pmh including cholecystitis/pancreatitis, nkda, post menopausal, s/p cholecystomy, c/o abdominal pain/distension/constipation x 2 days s/p cholecystomy about 2 days ago. Pt. stated that she feels distended, constip ated, been taking tramadol for pain, no night sweat, no change in vision, no palpitation, no rash, no other medical or psychological complaints. Pt. has no coughing or fever/chills, no rash, no night sweat, no other medical or psychological complaints. Past Medical History - Provider Review Nursing Documentation Reviewed: Yes - Infectious Disease Hx of Infectious Diseases: None - Reproductive Menopause: Yes - Cardiac Hx Pacemaker: No - Pulmonary Hx Respiratory Disorders: No - Hematological/Oncological Hx Blood Transfusions: No - Musculoskeletal/Rheumatological Hx Musculoskeletal Disorders: No - Psychiatric Hx Emotional Abuse: No Hx Physical Abuse: No Hx Substance Use: No - Surgical History Hx Appendectomy: Yes Hx Section: Yes - Anesthesia Hx Anesthesia Reactions: No Hx Malignant Hyperthermia: No - Suicidal Assessment Feels Threatened In Home Enviroment: No Family/Social History - Physician Review Nursing Documentation Reviewed: Yes Family/Social History: Unknown Family HX Smoking Status: Never Smoked Hx Alcohol Use: No Hx Substance Use: No Allergies/Home Meds Allergies/Adverse Reactions: Allergies No Known Allergies Allergy (Verified 07/03/18 13:28) Home Medications: Home Meds Medication Instructions Recorded Confirmed Rosuvastatin Calcium [Crestor] 10 mg PO DAILY 07/29/18 08/02/18 Tramadol HCl [Ultram] 50 mg PO Q6H PRN 08/02/18 08/02/18 Review of Systems - Review of Systems Constitutional: absent: Fatigue, Fevers Eyes: absent: Vision Changes ENT: absent: Hearing Changes Respiratory: absent: SOB, Cough Cardiovascular: absent: Chest Pain Gastrointestinal: Abdominal Pain, Constipation. absent: Nausea, Vomiting Skin: absent: Rash, Skin Lesions Neurological: absent: Headache, Dizziness Psychiatric: absent: Anxiety, Depression, Suicidal Ideation Physical Exam Vital Signs Reviewed: Yes Vital Signs Temp Pulse Resp BP Pulse Ox 08/04/18 18:43 98.1 F 94 H 18 134/94 H 96 Temperature: Afebrile Blood Pressure: Hypertensive Pulse: Regular Respiratory Rate: Normal Appearance: Positive for: Well-Appearing, Non-Toxic, Comfortable Pain Distress: Mild Mental Status: Positive for: Alert and Oriented X 3 - Systems Exam Head: Present: Atraumatic, Normocephalic Pupils: Present: PERRL Extroacular Muscles: Present: EOMI Conjunctiva: Present: Normal Mouth: Present: Moist Mucous Membranes Neck: Present: Normal Range of Motion Respiratory/Chest: Present: Clear to Auscultation, Good Air Exchange. No: Respiratory Distress, Accessory Muscle Use Cardiovascular: Present: Regular Rate and Rhythm, Normal S1, S2. No: Murmurs Abdomen: Present: Distention, Normal Bowel Sounds, Scars. No: Tenderness, Sari toneal Signs, Rebound, Guarding Back: Present: Normal Inspection Upper Extremity: Present: Normal Inspection. No: Cyanosis, Edema Lower Extremity: Present: Normal Inspection. No: Edema Neurological: Present: GCS=15, CN II-XII Intact, Speech Normal Skin: Present: Warm, Dry, Normal Color. No: Rashes Psychiatric: Present: Alert, Oriented x 3, Normal Insight, Normal Concentration Medical Decision Making ED Course and Treatment: 08/04/18 19:12 -Labs/lipase/UA -CT abdomen and pelvis -IVF/pepcid/toradol -Observe and reassess 08/04/18 23:24 -CT abdomen and pelvis show The patient is not constipated, there is oral contrast in the rectum.the appendix is not visualized with certainty. There are no pericolonic inflammatory changes or evidence of acute diverticulitis. No free pelvic fluid. Solid abdominal viscera are unremarkable. status post cholecystectomy. No fluid in the gallbladder fossa.the heart is borderline in size in transverse diameter. There are atelectatic changes at both pulmonary b ases. -Labs show no acute findings except potassium 3.5 (potassium chloride 20meq po ordered) -UA show trace leuko, rocephine ordered. -Pt. feels pain and bloated, simethecone ordered for her with morphine. 08/05/18 00:25 -All labs and radiology results discussed with the patient. -Pt. still having pain with not much relief with the medication given in the ER, paging Dr. Villatoro for admission for surgical evaluation tomorrow. 08/05/18 00:30 -I spoke to Dr. Villatoro about this case/labs/radiology result, agreed to admit the patient overnight and have surgeon Dr. Alexander evaluate the patient tomorrow. - RAD Interpretation Radiology Orders: CT OF THE ABDOMEN AND PELVIS WITH ORAL AND AN INTRAVENOUS CONTRAST indications: Constipation pain and distention recent cholecystectomy. Technique: CT of the abdomen and pelvis following oral and during the intravenous infusion of 100 mL of Omnipaque 350. Multiplanar reformatted images. findings: The patient is not constipated, there is oral contrast in the rectum.the appendix is not visualized with certainty. There are no pericolonic inflammatory changes or evidence of acute diverticulitis. No free pelvic fluid. Solid abdominal viscera are unremarkable. status post cholecystectomy. No fluid in the gallbladder fossa.the heart is borderline in size in transverse diameter. There are atelectatic changes at both pulmonary bases. Impression: Findings cannot support a diagnosis of constipation. Correlate clinically. Electronically signed on Aug 04, 2018 10:45:06 PM EDT by: Santi Spring M.D., Certified by [facility] Footwear Sales Representative: Radiologist - PA / [employer] / Resident Statement MD/DO has reviewed & agrees with the documentation as recorded. Disposition/Present on Arrival - Present on Arrival Any Indicators Present on Arrival: No History of DVT/PE: No History of Uncontrolled Diabetes: No Urinary Catheter: No History of Decub. Ulcer: No History Surgical Site Infection Following: None - Disposition Have Diagnosis and Disposition been Completed?: Yes Diagnosis: UTI (urinary tract infection), Hypokalemia, Intractable abdominal pain, Abdominal distension Disposition: HOSPITALIZED Disposition Time: 00:25 Patient Plan: Admission, Observation Condition: STABLE
[2018-08-04 19:46] LABS: BASO # 0.03 K/mm3 (0.0-2.0); BASO % 0.3 % (0.0-3.0); EOS # 0.2 (0.0-0.7); EOS % 1.9 % (1.5-5.0); GRAN # 7.73 (1.4-6.5); HEMOGLOBIN 14.2 g/dL (12.0-16.0); LYMPH % 18.6 % (22.0-35.0); MEAN CELL VOLUME 88.2 fl (80.0-105.0); MEAN CORPUSCULAR HEMOGLOBIN 28.4 pg (25.0-35.0); MEAN CORPUSCULAR HGB CONC 32.2 g/dl (31.0-37.0); MEAN PLATELET VOLUME 10.2 fl (7.0-11.0); MONO # 0.8 (0.1-0.6); MONO % 7.2 % (1.0-6.0); RED CELL DISTRIBUTION WIDTH 12.9 % (11.5-14.5); WHITE BLOOD COUNT 10.7 10^3/ul (4.5-11.0)
[2018-08-04 19:58] LABS: ALB/GLOB RATIO 1.3 (1.1-1.8); ALBUMIN 4.8 g/dL (3.0-4.8); ALT/SGPT 55 U/L (7-56); AST/SGOT 45 U/L (14-36); BLOOD UREA NITROGEN 12 mg/dL (7-21); CALCIUM 9.5 mg/dL (8.4-10.5); GFR NON-AFRICAN AMERICAN > 60; LIPASE 38 U/L (23-300)
[2018-08-04] MEDS ORDERED: Potassium Chloride 20 mEq ER Tab PO STA (20:02)
[2018-08-04 21:13] LABS: URINE BILIRUBIN NEGATIVE (NEGATIVE); URINE BLOOD TRACE-INTACT (NEGATIVE); URINE GLUCOSE (UA) NEGATIVE (NEGATIVE); URINE LEUKOCYTE ESTERASE TRACE Leu/uL (NEGATIVE); URINE PROTEIN NEGATIVE mg/dL (<30 mg/dL); URINE UROBILINOGEN 0.2 E.U./dL (<1 E.U./dL)
[2018-08-04 21:17] LABS: URINE APPEARANCE CLEAR (CLEAR); URINE COLOR YELLOW (YELLOW)
[2018-08-04] MEDS ORDERED: cefTRIAXone 1 gm 1 GM/100 ML BAG IVPB STA (21:19)
[2018-08-04 21:29] LABS: URINE EPITHELIAL CELLS 0 - 2 /hpf (0-5); URINE RBC 0 - 2 /hpf (0-2)
[2018-08-04] MEDS ORDERED: Iohexol 350 MG/100 ML VIAL ONE (21:41)
[2018-08-04] MEDS ORDERED: Simethicone 80 mg Chewtab PO STA (23:22)
[2018-08-05] MEDS ORDERED: Morphine 4 mg/ml ISec IVP STA (00:24)
[2018-08-05] MEDS ORDERED: Sodium Chloride 0.9% 1,000 ML IV STA (00:29)
[2018-08-05 04:54] VITALS: BMI 28.3
--- NOTE | 2018-08-05 06:27 | CP.PCM.HP ---
<Bridget Mccormack - Last Filed: 08/05/18 09:15> History of Present Illness - History of Present Illness History of Present Illness: H&P for Janine Jalloh PGY3 This is a 62yo female with past medical history of dyslipidemia and cholecystectomy POD#2 who came to ED for constipation and abdominal distention. Patient reports since the surgery she has felt bloated. She states she has been having small BMs but feels constipated. She has been passing gas and tolerating her diet. Pain is controlled with Tramadol at home. She denies having any abdominal pain, chest pain, shortness of breath, nausea/vomiting/diarrhea, fever/chills, numbness/tingling, dysuria or hematuria. Past medical history: Dyslipidemia Past surgical history: x 3, appendectomy, cholecystectomy Home meds: Reviewed as per MAR Allergies: NKDA Social history: Denies EtOH, drug or tobacco use. 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 Family history: Dyslipidemia Present on Admission - Present on Admission Any Indicators Present on Admission: No Review of Systems - Review of Systems All systems: reviewed and no additional remarkable complaints except Review of Systems: 12 point ROS reviewed as per HPI and is otherwise negative Past Patient History - Infectious Disease Hx of Infectious Diseases: None - Past Medical History & Family History Past Medical History?: Yes - Past Social History Smoking Status: Former Smoker - CARDIAC Hx Cardiac Disorders: No Hx Pacemaker: No - PULMONARY Hx Respiratory Disorders: No - NEUROLOGICAL Hx Neurological Disorder: No - HEENT Hx HEENT Problems: No - RENAL Hx Chronic Kidney Disease: No - ENDOCRINE/METABOLIC Hx Endocrine Disorders: No - HEMATOLOGICAL/ONCOLOGICAL Hx Blood Disorders: No - INTEGUMENTARY Hx Dermatological Problems: No - MUSCULOSKELETAL/RHEUMATOLOGICAL Hx Musculoskeletal Disorders: No Hx Falls: No - GASTROINTESTINAL Hx Gastrointestinal Disorders: No - GENITOURINARY/GYNECOLOGICAL Hx Genitourinary Disorders: No - PSYCHIATRIC Hx Emotional Abuse: No Hx Physical Abuse: No - SURGICAL HISTORY Hx Appendectomy: Yes - ANESTHESIA Hx Anesthesia Reactions: No Hx Malignant Hyperthermia: No Meds Allergies/Adverse Reactions: Allergies Allergy/AdvReac Type Severity Reaction Status Date / Time No Known Allergies Allergy Verified 07/03/18 13:28 Physical Exam - Constitutional Appears: No Acute Distress - Head Exam Head Exam: ATRAUMATIC, NORMAL INSPECTION, NORMOCEPHALIC - Eye Exam Eye Exam: EOMI, Normal appearance, PERRL Pupil Exam: NORMAL ACCOMODATION, PERRL - ENT Exam ENT Exam: Mucous Membranes Moist - Neck Exam Neck exam: Positive for: Full Rom, Normal Inspection. Negative for: Lymphaden opathy, Tenderness - Respiratory Exam Respiratory Exam: Clear to Auscultation Bilateral, NORMAL BREATHING PATTERN. absent: Rales, Rhonchi, Wheezes, Respiratory Distress, Stridor - Cardiovascular Exam Cardiovascular Exam: REGULAR RHYTHM, RRR, +S1, +S2. absent: Gallop, Rubs, Systolic Murmur - GI/Abdominal Exam GI & Abdominal Exam: Distended, Normal Bowel Sounds, Soft. absent: Guarding, Mass, Organomegaly, Rebound, Rigid, Tenderness Additional comments: bruising near umbilicus. Surgical site clean and dry no drainage or erythema - Extremities Exam Extremities exam: Positive for: normal capillary refill, normal inspection, pedal pulses present. Negative for: calf tenderness, pedal edema, tenderness - Neurological Exam Neurological exam: Alert, CN II-XII Intact, Oriented x3 - Psychiatric Exam Psychiatric exam: Normal Affect, Normal Mood - Skin Skin Exam: Dry, Intact, Warm Results - Vital Signs Recent Vital Signs: Last Vital Signs Temp 98.1 F 08/04/18 18:43 Pulse 70 08/05/18 01:27 Resp 18 08/05/18 04:29 BP 127/67 08/05/18 01:27 Pulse Ox 99 08/05/18 04:21 - Labs Result Diagrams: 08/04/18 19:39 08/04/18 19:39 Labs: Laboratory Results - last 24 hr 08/04/18 08/04/18 08/04/18 19:39 19:39 21:02 WBC 10.7 D RBC 5.00 Hgb 14.2 Hct 44.1 MCV 88.2 MCH 28.4 MCHC 32.2 RDW 12.9 Plt Count 215 MPV 10.2 Gran % 72.0 H Lymph % (Auto) 18.6 L [place] % (Auto) 7.2 H Eos % (Auto) 1.9 Baso % (Auto) 0.3 Gran # 7.73 H Lymph # (Auto) 2.0 [place] # (Auto) 0.8 H Eos # (Auto) 0.2 Baso # (Auto) 0.03 Sodium 140 Potassium 3.5 L Chloride 97 L Carbon Dioxide 31 Anion Gap 15 BUN 12 Creatinine 0.9 Est GFR ( Amer) > 60 Est GFR (Non-Af Amer) > 60 Random Glucose 151 H Calcium 9.5 Magnesium 2.4 H Total Bilirubin 0.4 AST 45 H ALT 55 Alkaline Phosphatase 90 Total Protein 8.5 H Albumin 4.8 Globulin 3.7 Albumin/Globulin Ratio 1.3 Lipase 38 Urine Color Yellow Urine Appearance Clear Urine pH 6.0 Ur Specific [place] 1.010 Urine Protein Negative Urine Glucose (UA) Negative Urine Ketones Negative Urine Blood Trace-intact H Urine Nitrate Negative Urine Bilirubin Negative Urine Urobilinogen 0.2 Ur Leukocyte Esterase Trace H Urine RBC 0 - 2 Urine WBC 1 - 3 Ur Epithelial Cells 0 - 2 Urine Bacteria None Assessment & Plan - Assessment and Plan (Free Text) Assessment: 1. Constipation 2. Hypokalemia 3. Cholecystectomy POD #2 4. Dyslipidemia Plan: Labs and imaging reviewed. Patient was given laxatives in ED and had a small BM. CT A/P did show constipation. Will give Mag Citrate. Patient is on IV fluids. Potassium was replaced. Surgery consulted. Pain is controlled and patient is tolerating diet. Patient will be d/c home and follow up with Dr. Saldivar as outpatient. She will continue her home medications. Case seen, discussed and reviewed with Dr. Aaron Mccormack PGY3 <Dre Walker S - Last Filed: 08/09/18 19:47> Results - Vital Signs Recent Vital Signs: Last Vital Signs Temp 98.3 F 08/05/18 06:00 Pulse 90 08/05/18 06:00 Resp 20 08/05/18 06:00 BP 130/77 08/05/18 06:00 Pulse Ox 98 08/05/18 06:00 - Labs Result Diagrams: 08/04/18 19:39 08/04/18 19:39 Assessment & Plan - Assessment and Plan (Free Text) Plan: Pt seen and examined. This is a late entry. I have reviewed the note of the healthcare or medical and agree with it. I have discussed the assessment and plan with the resident. I have reviewed the patient's labs and medications. Pt with constipation and was given laxatives. Pt's records have been reviewed. Pt had evaluation with surgery. She was placed on IVF. K is replaced.
--- NOTE | 2018-08-05 06:31 | CP.PCM.CON ---
History of Present Illness - History of Present Illness History of Present Illness: General Surgery Consult Note for Dr. Saldivar This is a 62F who is well known to the service. She presented for a semi elective cholecystectomy 3 days ago after a bout of gallstone pancreatitis in June. The surgery was uncomplicated however she has not moved her bowels since surgery. She denies any nausea or vomiting. She denies any localized pain and describes generalized discomfort. She attempted a manual disimpaction at home which was unsuccessful as well as a fleets enema. When she arrived she had a CT scan that showed contrast in the rectum as well as a large amount of stool throughout the colon. PMH: HLD PSH: 3c-sections, appendectomy, Lap mikala ALL: NKDA Review of Systems - Review of Systems Review of Systems: 12 point review of symptoms conducted and negative except for constipation Past Patient History - Infectious Disease Hx of Infectious Diseases: None - Past Medical History & Family History Past Medical History?: Yes - Past Social History Smoking Status: Former Smoker - CARDIAC Hx Cardiac Disorders: No Hx Pacemaker: No - PULMONARY Hx Respiratory Disorders: No - NEUROLOGICAL Hx Neurological Disorder: No - HEENT Hx HEENT Problems: No - RENAL Hx Chronic Kidney Disease: No - ENDOCRINE/METABOLIC Hx Endocrine Disorders: No - HEMATOLOGICAL/ONCOLOGICAL Hx Blood Disorders: No - INTEGUMENTARY Hx Dermatological Problems: No - MUSCULOSKELETAL/RHEUMATOLOGICAL Hx Musculoskeletal Disorders: No Hx Falls: No - GASTROINTESTINAL Hx Gastrointestinal Disorders: No - GENITOURINARY/GYNECOLOGICAL Hx Genitourinary Disorders: No - PSYCHIATRIC Hx Emotional Abuse: No Hx Physical Abuse: No - SURGICAL HISTORY Hx Appendectomy: Yes - ANESTHESIA Hx Anesthesia Reactions: No Hx Malignant Hyperthermia: No Meds Allergies/Adverse Reactions: Allergies Allergy/AdvReac Type Severity Reaction Status Date / Time No Known Allergies Allergy Verified 07/03/18 13:28 - Medications Medications: Current Medications Sodium Chloride (Sodium Chloride 0.9%) 1,000 mls @ 100 mls/hr IV .Q10H STA Stop: 08/05/18 10:28 Last Admin: 08/05/18 00:55 Dose: 100 mls/hr Physical Exam - Constitutional Appears: Non-toxic, No Acute Distress - Head Exam Head Exam: ATRAUMATIC, NORMOCEPHALIC - Eye Exam Eye Exam: EOMI, Normal appearance - ENT Exam ENT Exam: Mucous Membranes Moist - Respiratory Exam Respiratory Exam: NORMAL BREATHING PATTERN - GI/Abdominal Exam GI & Abdominal Exam: Soft. absent: Diminished Bowel Sounds, Distended, Firm, Guarding, Hernia Additional comments: Bruising noted by umbilical port site - Neurological Exam Neurological exam: Alert, Oriented x3 - Psychiatric Exam Psychiatric exam: Normal Affect, Normal Mood - Skin Skin Exam: Dry, Intact Results - Vital Signs Recent Vital Signs: Last Vital Signs Temp 98.1 F 08/04/18 18:43 Pulse 70 08/05/18 01:27 Resp 18 08/05/18 04:29 BP 127/67 08/05/18 01:27 Pulse Ox 99 08/05/18 04:21 - Labs Result Diagrams: 08/04/18 19:39 08/04/18 19:39 Labs: Laboratory Results - last 24 hr 08/04/18 08/04/18 08/04/18 19:39 19:39 21:02 WBC 10.7 D RBC 5.00 Hgb 14.2 Hct 44.1 MCV 88.2 MCH 28.4 MCHC 32.2 RDW 12.9 Plt Count 215 MPV 10.2 Gran % 72.0 H Lymph % (Auto) 18.6 L [place] % (Auto) 7.2 H Eos % (Auto) 1.9 Baso % (Auto) 0.3 Gran # 7.73 H Lymph # (Auto) 2.0 [place] # (Auto) 0.8 H Eos # (Auto) 0.2 Baso # (Auto) 0.03 Sodium 140 Potassium 3.5 L Chloride 97 L Carbon Dioxide 31 Anion Gap 15 BUN 12 Creatinine 0.9 Est GFR ( Amer) > 60 Est GFR (Non-Af Amer) > 60 Random Glucose 151 H Calcium 9.5 Magnesium 2.4 H Total Bilirubin 0.4 AST 45 H ALT 55 Alkaline Phosphatase 90 Total Protein 8.5 H Albumin 4.8 Globulin 3.7 Albumin/Globulin Ratio 1.3 Lipase 38 Urine Color Yellow Urine Appearance Clear Urine pH 6.0 Ur Specific [place] 1.010 Urine Protein Negative Urine Glucose (UA) Negative Urine Ketones Negative Urine Blood Trace-intact H Urine Nitrate Negative Urine Bilirubin Negative Urine Urobilinogen 0.2 Ur Leukocyte Esterase Trace H Urine RBC 0 - 2 Urine WBC 1 - 3 Ur Epithelial Cells 0 - 2 Urine Bacteria None - Imaging and Cardiology CT scan - abdomen Status: Image reviewed by me, Report reviewed by me Assessment & Plan - Assessment and Plan (Free Text) Assessment: 62F with constipation post operatively, patient CT scan was not with PO contrast likely contrast in rectum is from previous study or from enema content, glycerin suppository administered with small volume BM. Mag Citrate Monitor bowel function Possible D/C today if patient moves bowels D/W Dr. Janna Velez PGY3
[2018-08-05] MEDS ORDERED: Magnesium Citrate Oral SOL (300 ml) PO ONE (07:25)
[2018-08-05 07:47] VITALS: BP 130/77; PULSE 90; RESP 20; TEMP 98.3; O2SAT 98
--- NOTE | 2018-08-05 10:02 | CARD ---
APPROVED REPORT Date of service: 08/04/2018 EKG Measurement Heart [id number] <Conclusion> Normal sinus rhythm Minimal voltage criteria for LVH, may be normal variant T wave abnormality, consider anterior ischemia. Tall R in V1-V2 RVH? Abnormal ECG
--- NOTE | 2018-08-05 10:15 | CT ---
Date of service: 08/04/2018 PROCEDURE: CT Abdomen and Pelvis with contrast HISTORY: constipation, pain, distension, recent choley COMPARISON: CT abdomen pelvis with IV contrast performed 07/03/18 TECHNIQUE: Contrast dose: 100 mL Omnipaque 350 Radiation dose: Total exam DLP = 503.70 mGy-cm. This CT exam was performed using one or more of the following dose reduction techniques: Automated exposure control, adjustment of the mA and/or kV according to patient size, and/or use of iterative reconstruction technique. FINDINGS: LOWER THORAX: Bibasilar atelectasis/infiltrates. No visible pleural effusion or pneumothorax. LIVER: Hypoattenuation of the liver compatible with hepatic steatosis. GALLBLADDER AND BILE DUCTS: Cholecystectomy. PANCREAS: Fatty atrophy of the pancreas. SPLEEN: Unremarkable. ADRENALS: Unremarkable. KIDNEYS AND URETERS: The kidneys enhance symmetrically. No hydronephrosis or obstructing calculus identified. VASCULATURE: No aortic aneurysm. BOWEL: Stomach is nondistended. Lack of oral contrast limits evaluation for bowel pathology. Bowel loops appear within normal limits of caliber without evidence of obstruction. Mild retained fecal material. APPENDIX: No secondary signs of acute appendicitis. PERITONEUM: No significant free fluid. No definite free air. LYMPH NODES: No bulky adenopathy identified. BLADDER: Unremarkable. REPRODUCTIVE: Unremarkable. BONES: No acute osseous abnormality is detected. OTHER FINDINGS: None. IMPRESSION: Bibasilar atelectasis/infiltrates. Hypoattenuation of the liver compatible with hepatic steatosis. Cholecystectomy. Fatty atrophy of the pancreas. Mild retained fecal material. Preliminary impression was provided by CR2.
== END 2018-08-05 14:57 | disposition home or self-care (01) ==
LOC: ED 18:26 → ERH 08-05 00:27 → 5RNO 08-05 04:10
PROVIDERS: ADMIT Internal Medicine Nephrology; ATTEND Internal Medicine Nephrology
DX: K59.00 Constipation, unspecified (principal); N39.0 Urinary tract infection, site not specified; E87.6 Hypokalemia; E78.5 Hyperlipidemia, unspecified; R14.0 Abdominal distension (gaseous); Z87.891 Personal history of nicotine dependence
CPT/HCPCS: 74177; 80053; 81001; 83690; 83735; 85025; 87086; 87181; 93005; 96361; 96365; 96375; 99285; G0378; J0696; J1885; J2270; J7030; J7040; Q9967